=== PATIENT | female | born 1995 | race Caucasian/White ===

== ENCOUNTER → 2019-07-13 14:19 | Outpatient (BNVA) | payer MEDICAID, SELFPAY | PROVIDERS: Family Provider Family Medicine; PCP Family Medicine; Visit Provider Social Worker Clinical | DX: F33.42 Major depressive disorder, recurrent, in full remission (principal) | CPT/HCPCS: 90834 ==

== ENCOUNTER → 2019-08-03 12:58 | Outpatient (BNVA) | payer MEDICAID, SELFPAY | PROVIDERS: Family Provider Family Medicine; PCP Family Medicine; Visit Provider Social Worker Clinical | DX: F33.42 Major depressive disorder, recurrent, in full remission (principal) | CPT/HCPCS: 90834 ==

== ENCOUNTER → 2019-08-10 13:02 | Outpatient (BNVA) | payer MEDICAID, SELFPAY | PROVIDERS: Family Provider Family Medicine; PCP Family Medicine; Visit Provider Social Worker Clinical | DX: F33.2 Major depressive disorder, recurrent severe without psychotic features (principal) | CPT/HCPCS: 90834 ==

== ENCOUNTER → 2019-08-17 15:47 | Outpatient (BNVA) | payer MEDICAID, SELFPAY | PROVIDERS: Family Provider Family Medicine; PCP Family Medicine; Visit Provider Nurse Practitioner Psychiatric/Mental Health | DX: F33.2 Major depressive disorder, recurrent severe without psychotic features (principal); Z91.5 Personal history of self-harm; F10.10 Alcohol abuse, uncomplicated | CPT/HCPCS: 99214 ==

== ENCOUNTER → 2019-08-24 13:02 | Outpatient (BNVA) | payer MEDICAID, SELFPAY | PROVIDERS: Family Provider Family Medicine; PCP Family Medicine; Visit Provider Social Worker Clinical | DX: F33.2 Major depressive disorder, recurrent severe without psychotic features (principal) | CPT/HCPCS: 90834 ==

== ENCOUNTER → 2019-09-07 12:51 | Outpatient (BNVA) | payer MEDICAID, SELFPAY | PROVIDERS: Family Provider Family Medicine; PCP Family Medicine; Visit Provider Social Worker Clinical | DX: F33.2 Major depressive disorder, recurrent severe without psychotic features (principal) | CPT/HCPCS: 90834 ==

== ENCOUNTER → 2019-09-14 14:45 | Outpatient (BNVA) | payer MEDICAID, SELFPAY | PROVIDERS: Family Provider Family Medicine; PCP Family Medicine; Visit Provider Nurse Practitioner Psychiatric/Mental Health | DX: F33.2 Major depressive disorder, recurrent severe without psychotic features (principal); Z91.5 Personal history of self-harm; F10.10 Alcohol abuse, uncomplicated | CPT/HCPCS: 99213 ==

== ENCOUNTER → 2019-09-21 12:28 | Outpatient (BNVA) | payer MEDICAID, SELFPAY | PROVIDERS: Family Provider Family Medicine; PCP Family Medicine; Visit Provider Social Worker Clinical | DX: F33.2 Major depressive disorder, recurrent severe without psychotic features (principal) | CPT/HCPCS: 90834 ==

== ENCOUNTER 2019-10-04 15:00 | Emergency (ER) | payer MEDICAID, SELFPAY ==
[2019-10-04 15:01] VITALS: BP 123/70; PULSE 95; RESP 16; O2SAT 98; BMI 20.2
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
--- NOTE | 2019-10-04 15:40 | PC.NURSE ---
x ray in room
[2019-10-04] MEDS: ondansetron 2 mg/ML SDV 2 mL 4 MG IM (16:14)
[2019-10-04 16:15] VITALS: RESP 18; O2SAT 96
[2019-10-04] MEDS: morphine 4 mg/mL SDV 1 mL IM (16:15)
--- NOTE | 2019-10-04 16:40 | PC.NURSE ---
Pt states slight relief from morphine
[2019-10-04 17:00] VITALS: BP 99/77; PULSE 76; RESP 16; O2SAT 99
== END 2019-10-04 17:02 | disposition home or self-care (01) ==
PROVIDERS: Emergency Provider Physician Assistant; Family Provider Family Medicine; PCP Family Medicine
DX: S16.1XXA Strain of muscle, fascia and tendon at neck level, initial encounter (principal); M25.551 Pain in right hip; V89.2XXA Person injured in unspecified motor-vehicle accident, traffic, initial encounter; Y92.410 Unspecified street and highway as the place of occurrence of the external cause
CPT/HCPCS: 12345; 70450; 70486; 72125; 73502; 96372; 99281; 99283; J2270; J2405

== ENCOUNTER → 2019-10-05 14:53 | Outpatient (BNVA) | payer MEDICAID, SELFPAY | PROVIDERS: Family Provider Family Medicine; PCP Family Medicine; Visit Provider Specialist | DX: R51 Headache (principal); R29.90 Unspecified symptoms and signs involving the nervous system | CPT/HCPCS: 99213 ==

== ENCOUNTER → 2019-10-12 13:13 | Outpatient (BNVA) | payer MEDICAID, SELFPAY | PROVIDERS: Family Provider Family Medicine; PCP Family Medicine; Visit Provider Social Worker Clinical | DX: F33.2 Major depressive disorder, recurrent severe without psychotic features (principal) | CPT/HCPCS: 90834 ==

== ENCOUNTER → 2019-10-20 09:45 | Outpatient (BNVA) | payer MEDICAID, SELFPAY | PROVIDERS: Family Provider Family Medicine; PCP Family Medicine; Visit Provider Social Worker Clinical | DX: F33.2 Major depressive disorder, recurrent severe without psychotic features (principal) | CPT/HCPCS: 90834 ==

== ENCOUNTER → 2019-10-31 08:11 | Outpatient (BNVA) | payer MEDICAID, SELFPAY | PROVIDERS: Family Provider Family Medicine; PCP Family Medicine; Visit Provider Social Worker Clinical | DX: F33.2 Major depressive disorder, recurrent severe without psychotic features (principal); Z91.5 Personal history of self-harm; F10.10 Alcohol abuse, uncomplicated | CPT/HCPCS: 90834 ==

== ENCOUNTER → 2019-11-14 08:10 | Outpatient (BNVA) | payer MEDICAID, SELFPAY | PROVIDERS: Family Provider Family Medicine; PCP Family Medicine; Visit Provider Social Worker Clinical | DX: F33.2 Major depressive disorder, recurrent severe without psychotic features (principal); Z91.5 Personal history of self-harm; F10.10 Alcohol abuse, uncomplicated | CPT/HCPCS: 90834 ==

== ENCOUNTER → 2019-11-22 08:22 | Outpatient (BNVA) | payer MEDICAID, SELFPAY | PROVIDERS: Family Provider Family Medicine; PCP Family Medicine; Visit Provider Social Worker Clinical | DX: F33.2 Major depressive disorder, recurrent severe without psychotic features (principal); Z91.5 Personal history of self-harm; F10.10 Alcohol abuse, uncomplicated | CPT/HCPCS: 90834 ==

== ENCOUNTER → 2019-11-23 08:39 | Outpatient (BNVA) | payer MEDICAID, SELFPAY | PROVIDERS: Family Provider Family Medicine; Visit Provider Nurse Practitioner Psychiatric/Mental Health | DX: F33.2 Major depressive disorder, recurrent severe without psychotic features (principal); F10.10 Alcohol abuse, uncomplicated; Z91.5 Personal history of self-harm; F90.2 Attention-deficit hyperactivity disorder, combined type | CPT/HCPCS: 99214 ==

== ENCOUNTER → 2019-11-30 08:24 | Outpatient (BNVA) | payer MEDICAID, SELFPAY | PROVIDERS: Family Provider Family Medicine; Visit Provider Social Worker Clinical | DX: F33.2 Major depressive disorder, recurrent severe without psychotic features (principal); Z91.5 Personal history of self-harm; F10.10 Alcohol abuse, uncomplicated | CPT/HCPCS: 90834 ==

== ENCOUNTER → 2019-12-07 08:31 | Outpatient (BNVA) | payer MEDICAID, SELFPAY | PROVIDERS: Family Provider Family Medicine; Visit Provider Social Worker Clinical | DX: F33.2 Major depressive disorder, recurrent severe without psychotic features (principal); Z91.5 Personal history of self-harm; F10.10 Alcohol abuse, uncomplicated | CPT/HCPCS: 90834 ==

== ENCOUNTER 2019-12-22 14:47 | Emergency (ER) | payer MEDICAID, SELFPAY ==
--- NOTE | 2019-12-22 15:22 | W.ED.FEVER ---
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, recurrent severe without psychotic features Personal history of self-harm Recurrent UTI Family History Grandfather Hypertension Family/Other CAD (coronary artery disease) Other Cancer Diabetes Denies family history of Stroke Social History Smoking and tobacco status: never smoked Alcohol intake: current Alcohol intake frequency: few times a month Marital status: Single Current occupational status: unemployed History of recent travel: No Physical Exam Const: COMMON NORMALS: no acute distress and patient oriented x3 GENERAL APPEARANCE: cooperative HENMT: COMMON NORMALS: normocephalic, TM's normal bilaterally and Normal external nose present HEAD & SCALP: normal to inspection and normocephalic NOSE: Normal external nose present TYMPANIC MEMBRANE: TM's normal bilaterally MOUTH: Normal oral and palatal mucosa present THROAT: posterior oropharynx normal Eye: GENERAL EYE: appearance normal, both eyes and all related structures Neck/C-Spine: COMMON NORMALS: full ROM Lymph: LYMPHATIC: no lymphadenopathy noted Chest: COMMONS NORMALS: normal inspection of the chest Resp: COMMON NORMALS: normal respiratory effort EFFORT & INSPECTION: Yes able to speak in complete sentences Cardio: COMMON NORMALS: regular rate and regular rhythm RATE: regular rate RHYTHM: regular rhythm GI: COMMON NORMALS: non-tender : COMMON NORMALS: Yes no CVA tenderness BLADDER/KIDNEY EXAM: Yes no CVA tenderness Back/Pelvis: COMMON NORMALS: no CVA tenderness and thoracic and lumbar spine normal to inspection Extremity: COMMON NORMALS: normal to inspection Neuro: COMMON NORMALS: patient oriented x3 and moves all extremities Psych: COMMON NORMALS: mental status grossly normal and cooperative Skin: COMMON NORMALS: no rashes or lesions noted GENERAL SKIN EXAM: no rashes or lesions noted Discharge Plan Discharge Prescriptions: No Action sulfamethoxazole-trimethoprim 800-160 mg tablet 1 tab PO BID Qty: 20 RF: 1 amitriptyline 25 mg tablet 25 mg PO DAILY PRN (Reason: Headaches) Qty: 30 RF: 1 duloxetine [Cymbalta] 60 mg capsule,delayed release(DR/EC) 60 mg PO QAM Qty: 30 RF: 3 trazodone 100 mg tablet 200 mg PO BEDTIME PRN (Reason: sleep) Qty: 60 RF: 3 gabapentin 300 mg capsule 300 mg PO .bedtime Qty: 30 RF: 1 desogestrel-ethinyl estradiol [Enskyce] 0.15-0.03 mg tablet 1 tab PO DAILY RF: 0 Multiple Vitamins Tablet 2 tab PO DAILY RF: 0 Prilosec OTC 20 mg Tablet,Delayed Release (Dr/Ec) 20 mg PO DAILY PRN (Reason: UNKNOWN) RF: 0 cyclobenzaprine 10 mg tablet 10 mg PO TID Qty: 14 RF: 0 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
[2019-12-22 15:59] VITALS: BP 107/63; PULSE 73; RESP 16; TEMP 36.6; O2SAT 97
--- NOTE | 2019-12-22 16:01 | ED_ITS ---
HPI - Fever General: Chief Complaint: General Medical Stated Complaint: fever Time Seen by Provider: 12/22/19 15:22 Source: patient Mode of arrival: ambulatory Limitations: no limitations History of Present Illness: HPI Narrative: Patient came in for concerns of exposure to viral illness. Her son has been ill with cough and fever. Patient does not want testing unless it is necessary. Patient appears well. Patient appears in no acute distress. 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, recurrent severe without psychotic features Personal history of self-harm Recurrent UTI Family History Grandfather Hypertension Family/Other CAD (coronary artery disease) Other Cancer Diabetes Denies family history of Stroke Social History Smoking and tobacco status: never smoked Alcohol intake: current Alcohol intake frequency: few times a month Marital status: Single Current occupational status: unemployed History of recent travel: No Physical Exam Const: COMMON NORMALS: no acute distress and patient oriented x3 GENERAL APPEARANCE: cooperative HENMT: COMMON NORMALS: normocephalic, TM's normal bilaterally and Normal external nose present HEAD & SCALP: normal to inspection and normocephalic NOSE: Normal external nose present TYMPANIC MEMBRANE: TM's normal bilaterally MOUTH: Normal oral and palatal mucosa present THROAT: posterior oropharynx normal Eye: GENERAL EYE: appearance normal, both eyes and all related structures Neck/C-Spine: COMMON NORMALS: full ROM Lymph: LYMPHATIC: no lymphadenopathy noted Chest: COMMONS NORMALS: normal inspection of the chest Resp: COMMON NORMALS: normal respiratory effort EFFORT & INSPECTION: Yes able to speak in complete sentences Cardio: COMMON NORMALS: regular rate and regular rhythm RATE: regular rate RHYTHM: regular rhythm GI: COMMON NORMALS: non-tender : COMMON NORMALS: Yes no CVA tenderness BLADDER/KIDNEY EXAM: Yes no CVA tenderness Back/Pelvis: COMMON NORMALS: no CVA tenderness and thoracic and lumbar spine normal to inspection Extremity: COMMON NORMALS: normal to inspection Neuro: COMMON NORMALS: patient oriented x3 and moves all extremities Psych: COMMON NORMALS: mental status grossly normal and cooperative Skin: COMMON NORMALS: no rashes or lesions noted GENERAL SKIN EXAM: no april hes or lesions noted Course Vital Signs: Vital signs: Vital Signs Temperature 97.9 F 12/22/19 15:59 Pulse Rate 73 12/22/19 15:59 Respiratory Rate 16 12/22/19 15:59 Blood Pressure 107/63 12/22/19 15:59 Pulse Oximetry 97 12/22/19 16:13 MDM - Fever MDM Narrative: Medical decision making narrative: Patient here today for complaints of possible exposure to viral illness. Patient denies any signs or symptoms of infection. Patient's son was also in the ER for upper respiratory illness. Exam notes lungs are clear to auscultation. Ear nose and throat is normal. Vital signs are normal. Differential diagnosis includes prodrome of viral illness, upper respiratory infection, malingering. Reviewed exam with patient with recommendations for treatment follow-up. Patient reported understanding agreed to plan. Discharge Plan Discharge Patient Disposition: Home, Self-Care Clinical Impression: Exposure to viral disease Condition: Stable Prescriptions: No Action sulfamethoxazole-trimethoprim 800-160 mg tablet 1 tab PO BID Qty: 20 RF: 1 amitriptyline 25 mg tablet 25 mg PO DAILY PRN (Reason: Headaches) Qty: 30 RF: 1 duloxetine [Cymbalta] 60 mg capsule,delayed release(DR/EC) 60 mg PO QAM Qty: 30 RF: 3 trazodone 100 mg tablet 200 mg PO BEDTIME PRN (Reason: sleep) Qty: 60 RF: 3 gabapentin 300 mg capsule 300 mg PO .bedtime Qty: 30 RF: 1 desogestrel-ethinyl estradiol [Enskyce] 0.15-0.03 mg tablet 1 tab PO DAILY RF: 0 Multiple Vitamins Tablet 2 tab PO DAILY RF: 0 Prilosec OTC 20 mg Tablet,Delayed Release (Dr/Ec) 20 mg PO DAILY PRN (Reason: UNKNOWN) RF: 0 cyclobenzaprine 10 mg tablet 10 mg PO TID Qty: 14 RF: 0 Discharge Orders: Discharge Order (Routine); Ordered 12/22/19 Ordered By: Homer Pena Referrals: Jemma Malone MD [Primary Care Provider] - Discharge Diet: Usual diet Discharge Activity: Increase activity as tolerated Activity Restrictions/Additional Instructions: Home and rest. Drink plenty of fluids. Tylenol or ibuprofen as needed for pain or fever. Follow-up with primary care as needed. Return to the ER for new concerns. 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
[2019-12-22 16:13] VITALS: O2SAT 97
== END 2019-12-22 16:48 | disposition home or self-care (01) ==
PROVIDERS: Emergency Provider Nurse Practitioner Family; PCP Family Medicine
DX: Z20.828 Contact with and (suspected) exposure to other viral communicable diseases (principal)
CPT/HCPCS: 12345; 99281

== ENCOUNTER → 2019-12-28 07:38 | Outpatient (BNVA) | payer MEDICAID, SELFPAY | PROVIDERS: PCP Family Medicine; Visit Provider Nurse Practitioner Psychiatric/Mental Health | DX: F33.2 Major depressive disorder, recurrent severe without psychotic features (principal); F10.10 Alcohol abuse, uncomplicated; Z91.5 Personal history of self-harm | CPT/HCPCS: 99214 ==

== ENCOUNTER → 2020-01-04 08:15 | Outpatient (BNVA) | payer MEDICAID, SELFPAY | PROVIDERS: PCP Family Medicine; Visit Provider Social Worker Clinical | DX: F33.2 Major depressive disorder, recurrent severe without psychotic features (principal); F10.10 Alcohol abuse, uncomplicated; Z91.5 Personal history of self-harm | CPT/HCPCS: 90834; 87635 ==

== ENCOUNTER → 2020-03-07 08:29 | Outpatient (BNVA) | payer MEDICAID, SELFPAY | PROVIDERS: PCP Family Medicine; Visit Provider Nurse Practitioner Psychiatric/Mental Health | DX: F33.2 Major depressive disorder, recurrent severe without psychotic features (principal); F10.10 Alcohol abuse, uncomplicated; Z91.5 Personal history of self-harm | CPT/HCPCS: 99214 ==

== ENCOUNTER 2020-04-03 15:12 | Outpatient (CLI) | payer MEDICAID, SELFPAY ==
--- NOTE | 2020-04-03 15:16 | USCV_ITS ---
Kassandra Cerrato Age: 24 Gender: F : 1995 Exam Date: 04/03/2020 15:46 Ordering Phys: Kole Lopez M.D ([email or web address]) Technologist: Kaushik Saucedo Exam Location: [facility] Indication: HISTORY OF COARCTATION OF AORTA BP: 120 / 80 HR: 73 Rhythm: Sinus Technical Quality: Adequate MEASUREMENTS (Male / Female) Normal Values 2D ECHO LV Diastolic Diameter PLAX 4.0 cm 4.2 - 5.9 / 3.9 - 5.3 cm LV Systolic Diameter PLAX 2.4 cm IVS Diastolic Thickness 0.9 cm 0.6 - 1.0 / 0.6 - 0.9 cm IVS Systolic Thickness 1.3 cm LVPW Diastolic Thickness 0.8 cm 0.6 - 1.0 / 0.6 - 0.9 cm LVPW Systolic Thickness 1.3 cm LVOT Diameter 1.6 cm LV Ejection Fraction 2D Teich 71.9 % LV Ejection Fraction MOD 2C 69.0 % LV Ejection Fraction 2C AL 68.6 % LA Diameter 3.4 cm LA Width 2.8 cm LA Height 3.7 cm RA Width 2.9 cm RA Height 3.5 cm Aorta at Sinotubular Diameter 0.9 cm M-MODE LV Diastolic Diameter MM 4.4 cm 4.2 - 5.9 / 3.9 - 5.3 cm LV Systolic Diameter MM 2.7 cm LV Ejection Fraction MM Teich 70.5 % IVS Diastolic Thickness MM 0.8 cm 0.6 - 1.0 / 0.6 - 0.9 cm IVS Systolic Thickness MM 1.3 cm LVPW Diastolic Thickness MM 0.8 cm 0.6 - 1.0 / 0.6 - 0.9 cm LVPW Systolic Thickness MM 1.6 cm RV Diastolic Diameter MM 1.5 cm Aortic Annulus Diameter 2.7 cm LA Ao Ratio MM 1.3 MV E Point Septal Separation 0.9 cm DOPPLER AV Peak Velocity 117.0 cm/s LVOT Peak Velocity 95.0 cm/s AV Area Cont Eq vti 1.4 cm squared AV Area Cont Eq pk 1.6 cm squared MV Area PHT 3.5 cm squared Mitral E to A Ratio 2.2 MV E' Velocity 19.0 cm/s Mitral E to MV E' Ratio 6.3 Mitral E to LV E' Lateral Ratio 5.5 Mitral E to LV E' Septal Ratio 7.3 TR Peak Velocity 207.0 cm/s TR Peak Gradient 17.2 mmHg TV Peak E Velocity 106.0 cm/s Right Atrial Pressure 3.0 mmHg Pulmonary Artery Systolic Pressu 20.1 mmHg FINDINGS Left Ventricle Normal left ventricular size, systolic function and wall thickness, with no regional wall motion abnormalities. LVEF is 65 to 70%. Normal left ventricular wall thickness. Normal diastolic filling pattern. Right Ventricle The right ventricle is normal in size and function. Right Atrium The right atrium is normal in size. Left Atrium The left atrium is normal in size. Mitral Valve Structurally normal mitral valve without significant stenosis or prolapse. There is no mitral regurgitation. Aortic Valve Structurally normal aortic valve without significant sclerosis or stenosis. There is no aortic regurgitation. Tricuspid Valve Structurally normal tricuspid valve without significant stenosis or regurgitation. Trace tricuspid regurgitation is noted. Pulmonic Valve Structurally normal pulmonic valve without significant stenosis. There is no pulmonic regurgitation. Pericardium Normal pericardium without effusion. Aorta Normal ascending aorta dimension. The aortic flow velocity at the junction of arch and descending aorta was 128.5 cm/s with a peak gradient of 6.6 mmHg. CONCLUSIONS LV systolic function is normal with EF of 65 to 70%. Diastolic function is normal. No significant stenosis at the junction of the arch and descending aorta based on aortic Doppler flow velocity. Compared to prior echo from 04/16/2016, no significant changes are noted. Kole Lopez MD (Electronically Signed) Final Date: 14 April 2020 20:57 S
== END 2020-04-03 15:13 | disposition home or self-care (01) ==
LOC: US 15:13
PROVIDERS: PCP Family Medicine; Visit Provider Internal Medicine
DX: Q25.1 Coarctation of aorta (principal)
CPT/HCPCS: 93306

== ENCOUNTER → 2020-04-04 08:41 | Outpatient (BNVA) | payer MEDICAID, SELFPAY | PROVIDERS: PCP Family Medicine; Visit Provider Nurse Practitioner Psychiatric/Mental Health | DX: F33.2 Major depressive disorder, recurrent severe without psychotic features (principal); F10.10 Alcohol abuse, uncomplicated; Z91.5 Personal history of self-harm | CPT/HCPCS: 99214 ==

== ENCOUNTER → 2020-04-30 08:28 | Outpatient (BNVA) | payer MEDICAID, SELFPAY | PROVIDERS: PCP Family Medicine; Visit Provider Social Worker Clinical | DX: F33.3 Major depressive disorder, recurrent, severe with psychotic symptoms (principal) | CPT/HCPCS: 90791 ==

== ENCOUNTER → 2020-05-02 08:41 | Outpatient (BNVA) | payer MEDICAID, SELFPAY | PROVIDERS: PCP Family Medicine; Visit Provider Nurse Practitioner Psychiatric/Mental Health | DX: F33.2 Major depressive disorder, recurrent severe without psychotic features (principal); F10.10 Alcohol abuse, uncomplicated; Z91.5 Personal history of self-harm | CPT/HCPCS: 99214 ==

== ENCOUNTER → 2020-05-14 08:59 | Outpatient (BNVA) | payer MEDICAID, SELFPAY | PROVIDERS: PCP Family Medicine; Visit Provider Social Worker Clinical | DX: F33.2 Major depressive disorder, recurrent severe without psychotic features (principal) | CPT/HCPCS: 90834 ==

== ENCOUNTER → 2020-07-09 08:19 | Outpatient (BNVA) | payer MEDICAID, SELFPAY | PROVIDERS: PCP Family Medicine; Visit Provider Social Worker Clinical | DX: F33.2 Major depressive disorder, recurrent severe without psychotic features (principal); F10.10 Alcohol abuse, uncomplicated | CPT/HCPCS: 90834 ==

== ENCOUNTER → 2020-07-16 08:53 | Outpatient (BNVA) | payer BC, SELFPAY | PROVIDERS: PCP Family Medicine; Visit Provider Social Worker Clinical | DX: F33.2 Major depressive disorder, recurrent severe without psychotic features (principal) | CPT/HCPCS: 90834 ==

== ENCOUNTER → 2020-08-06 09:32 | Outpatient (BNVA) | payer BC, SELFPAY | PROVIDERS: PCP Family Medicine; Visit Provider Nurse Practitioner Psychiatric/Mental Health | DX: F33.2 Major depressive disorder, recurrent severe without psychotic features (principal); Z91.5 Personal history of self-harm; F10.10 Alcohol abuse, uncomplicated; F41.1 Generalized anxiety disorder | CPT/HCPCS: 99214 ==

== ENCOUNTER → 2020-09-12 08:07 | Outpatient (BNVA) | payer BC, SELFPAY | PROVIDERS: PCP Family Medicine; Visit Provider Social Worker Clinical | DX: F33.2 Major depressive disorder, recurrent severe without psychotic features (principal) | CPT/HCPCS: 90834 ==

== ENCOUNTER → 2020-10-03 14:41 | Outpatient (BNVA) | payer BC, SELFPAY | PROVIDERS: PCP Family Medicine; Visit Provider Social Worker Clinical | DX: F33.2 Major depressive disorder, recurrent severe without psychotic features (principal) | CPT/HCPCS: 90834 ==

== ENCOUNTER → 2020-10-30 07:55 | Outpatient (BNVA) | payer BC, SELFPAY | PROVIDERS: PCP Family Medicine; Visit Provider Nurse Practitioner Psychiatric/Mental Health | DX: F33.2 Major depressive disorder, recurrent severe without psychotic features (principal); Z91.5 Personal history of self-harm; F10.10 Alcohol abuse, uncomplicated | CPT/HCPCS: 99214 ==

== ENCOUNTER → 2020-11-13 15:21 | Outpatient (BNVA) | payer BC, SELFPAY | PROVIDERS: PCP Family Medicine; Visit Provider Social Worker Clinical | DX: F33.2 Major depressive disorder, recurrent severe without psychotic features (principal); F10.10 Alcohol abuse, uncomplicated | CPT/HCPCS: 90834 ==

== ENCOUNTER → 2020-11-23 15:58 | Outpatient (BNVA) | payer BC, SELFPAY | PROVIDERS: PCP Family Medicine; Visit Provider Nurse Practitioner Family | DX: J02.9 Acute pharyngitis, unspecified (principal) | CPT/HCPCS: 87071; 87880 ==

== ENCOUNTER → 2020-12-18 15:39 | Outpatient (BNVA) | payer BC, SELFPAY | PROVIDERS: PCP Family Medicine; Visit Provider Social Worker Clinical | DX: F33.2 Major depressive disorder, recurrent severe without psychotic features (principal); F10.10 Alcohol abuse, uncomplicated | CPT/HCPCS: 90834 ==

== ENCOUNTER → 2020-12-19 08:29 | Outpatient (BNVA) | payer BC, SELFPAY | PROVIDERS: PCP Family Medicine; Visit Provider Nurse Practitioner Psychiatric/Mental Health | DX: F33.2 Major depressive disorder, recurrent severe without psychotic features (principal); Z91.5 Personal history of self-harm; F10.10 Alcohol abuse, uncomplicated | CPT/HCPCS: 99214 ==

== ENCOUNTER → 2021-01-01 15:20 | Outpatient (BNVA) | payer BC, SELFPAY | PROVIDERS: PCP Family Medicine; Visit Provider Social Worker Clinical | DX: F33.2 Major depressive disorder, recurrent severe without psychotic features (principal); F10.10 Alcohol abuse, uncomplicated | CPT/HCPCS: 90834 ==

== ENCOUNTER → 2021-01-22 15:27 | Outpatient (BNVA) | payer BC, SELFPAY | PROVIDERS: PCP Family Medicine; Visit Provider Social Worker Clinical | DX: F33.2 Major depressive disorder, recurrent severe without psychotic features (principal) | CPT/HCPCS: 90834 ==

== ENCOUNTER → 2021-02-04 12:37 | Outpatient (BNVA) | payer BC, SELFPAY | PROVIDERS: PCP Family Medicine; Visit Provider Registered Nurse Neonatal Intensive Care | DX: Z20.822 Contact with and (suspected) exposure to COVID-19 (principal) | CPT/HCPCS: 87635 ==

== ENCOUNTER → 2021-02-19 15:48 | Outpatient (BNVA) | payer BC, SELFPAY | PROVIDERS: PCP Family Medicine; Visit Provider Social Worker Clinical | DX: F33.2 Major depressive disorder, recurrent severe without psychotic features (principal) | CPT/HCPCS: 90834 ==

== ENCOUNTER → 2021-02-28 08:04 | Outpatient (BNVA) | payer BC, SELFPAY | PROVIDERS: PCP Family Medicine; Visit Provider Nurse Practitioner Psychiatric/Mental Health | DX: F33.2 Major depressive disorder, recurrent severe without psychotic features (principal); Z91.5 Personal history of self-harm; F10.10 Alcohol abuse, uncomplicated; G47.00 Insomnia, unspecified | CPT/HCPCS: 99214 ==

== ENCOUNTER → 2021-04-02 15:43 | Outpatient (BNVA) | payer BC, SELFPAY | PROVIDERS: PCP Family Medicine; Visit Provider Social Worker Clinical | DX: F33.2 Major depressive disorder, recurrent severe without psychotic features (principal); F10.10 Alcohol abuse, uncomplicated | CPT/HCPCS: 90834 ==

== ENCOUNTER → 2021-04-10 09:04 | Outpatient (BNVA) | payer BC, SELFPAY | PROVIDERS: PCP Family Medicine; Visit Provider Nurse Practitioner Psychiatric/Mental Health | DX: F33.2 Major depressive disorder, recurrent severe without psychotic features (principal); Z91.5 Personal history of self-harm; F10.10 Alcohol abuse, uncomplicated; G47.00 Insomnia, unspecified | CPT/HCPCS: 99214 ==

== ENCOUNTER → 2021-04-28 15:00 | Outpatient (BNVA) | payer BC, SELFPAY | PROVIDERS: PCP Family Medicine; Visit Provider Social Worker Clinical | DX: F33.2 Major depressive disorder, recurrent severe without psychotic features (principal); F10.10 Alcohol abuse, uncomplicated | CPT/HCPCS: 90834 ==

== ENCOUNTER → 2021-05-07 08:27 | Outpatient (BNVA) | payer BC, SELFPAY | PROVIDERS: PCP Family Medicine; Visit Provider Social Worker Clinical | DX: F33.2 Major depressive disorder, recurrent severe without psychotic features (principal); F10.10 Alcohol abuse, uncomplicated | CPT/HCPCS: 90834 ==

== ENCOUNTER → 2021-05-22 08:08 | Outpatient (BNVA) | payer BC, SELFPAY | PROVIDERS: PCP Family Medicine; Visit Provider Nurse Practitioner Psychiatric/Mental Health | DX: F33.2 Major depressive disorder, recurrent severe without psychotic features (principal); F10.10 Alcohol abuse, uncomplicated; G47.00 Insomnia, unspecified | CPT/HCPCS: 99214 ==

== ENCOUNTER → 2021-05-28 15:56 | Outpatient (BNVA) | payer BC, SELFPAY | PROVIDERS: PCP Family Medicine; Visit Provider Social Worker Clinical | DX: F33.2 Major depressive disorder, recurrent severe without psychotic features (principal); F10.10 Alcohol abuse, uncomplicated | CPT/HCPCS: 90834 ==

== ENCOUNTER → 2021-06-11 15:54 | Outpatient (BNVA) | payer BC, SELFPAY | PROVIDERS: PCP Family Medicine; Visit Provider Social Worker Clinical | DX: F33.2 Major depressive disorder, recurrent severe without psychotic features (principal); F10.10 Alcohol abuse, uncomplicated | CPT/HCPCS: 90834 ==

== ENCOUNTER → 2021-06-25 15:57 | Outpatient (BNVA) | payer BC, SELFPAY | PROVIDERS: PCP Family Medicine; Visit Provider Social Worker Clinical | DX: F33.1 Major depressive disorder, recurrent, moderate (principal) | CPT/HCPCS: 90791 ==

== ENCOUNTER → 2021-07-10 13:35 | Outpatient (BNVA) | payer BC, SELFPAY | PROVIDERS: PCP Family Medicine; Visit Provider Nurse Practitioner | DX: R39.9 Unspecified symptoms and signs involving the genitourinary system (principal) | CPT/HCPCS: 81000 ==

== ENCOUNTER 2021-07-12 16:07 | Emergency (ER) | payer BC, MEDICAID, SELFPAY ==
[2021-07-12 16:21] VITALS: BP 113/72; PULSE 89; RESP 16; TEMP 37.2; O2SAT 97
--- NOTE | 2021-07-12 20:56 | ED_ITS ---
HPI - Female Genitourinary General: Chief complaint: Urogenital-Female Stated complaint: VAGINAL PROBLEMS Time Seen by Provider: 07/12/21 20:51 History of Present Illness: HPI Narrative: Patient is a 25-year-old female comes to the ED with vaginal pain. Symptoms started approximately 1 week ago. She was given a dose of fluconazole and treated for a yeast infection on Wednesday. She says symptoms were improving. She also wanted to see PCP on and they diagnosed her with a UTI and put her on clindamycin. She has been taking the clindamycin now for little over 24 hours. She says she still having some vaginal pain. A little bit of white vaginal discharge. Denies any vaginal bleeding. Denies any abdominal pain, lower back pain, nausea/vomiting, fever or chills. Associated symptoms: Reports vaginal discharge (white discharge); Deny abdominal pain, headache(s), nausea or vaginal bleeding Review of Systems Const: Denies: fever(s), chills or fatigue Eyes: Denies: change in vision or eye discomfort ENMT: Denies: throat pain, odynophagia, nasal discharge or nasal congestion Card: Denies: chest pain, palpitations, edema, swelling of feet/ankles, dyspnea on exertion or orthopnea Resp: Denies: dyspnea, productive cough or non-productive cough GI: Denies: abdominal pain, nausea, vomiting, diarrhea, constipation or hematochezia : Reports: dysuria, vaginal discharge (white discharge) and other (skin around vagina burning pain); Denies: flank pain, hematuria or vaginal bleeding Musc: Denies: neck pain, back pain or extremity swelling Skin/Breast: Denies: rash or new lesions Neuro: Denies: headache(s), numbness in extremities or weakness in extremities COUNTS INCLUDE 234 BEDS AT THE [facility] ED PFSH: Medical History Coarctation of aorta Hutch diverticulum of urinary bladder Insomnia Major depressive disorder, recurrent severe without psychotic features Personal history of self-harm Psychiatric care Recurrent UTI Family History Grandfather Hypertension Family/Other CAD (coronary artery disease) Other Cancer Diabetes Denies family history of Stroke Social History Smoking and tobacco status: never smoked Alcohol intake: current Alcohol intake frequency: few times a month Marital status: Single Current occupational status: unemployed History of recent travel: No Current gender identity: Female Physical Exam Const: COMMON NORMALS: no acute distress, patient oriented x3 and alert GENERAL APPEARANCE: cooperative and comfortable HENMT: COMMON NORMALS: normocephalic HEAD & SCALP: normocephalic MOUTH: Normal oral and palatal mucosa present THROAT: posterior oropharynx normal and uvula midline Neck/C-Spine: COMMON NORMALS: supple GENERAL: Yes normal visual inspection Resp: COMMON NORMALS: normal respiratory effort, No retractions, No use of accessory muscles and clear to auscultation bilaterally AUSCULTATION: clear to auscultation bilaterally Cardio: COMMON NORMALS: regular rate, regular rhythm, S1 normal heart sound present, S2 normal heart sound present, No gallops present (Cardio), No clicks present (Cardio), No murmurs present (Cardio) and Peripheral pulses 2+ throughout RATE: regular rate RHYTHM: regular rhythm HEART SOUNDS: S1 normal heart sound present and S2 normal heart sound present PERIPHERAL PULSES: Peripheral pulses 2+ throughout GI: COMMON NORMALS: Normal to inspection, nondistended, normoactive bowel sounds present, Soft to palpation, non-tender and no masses PALPATION: Yes Soft to palpation : COMMON NORMALS: Yes no CVA tenderness BLADDER/KIDNEY EXAM: Yes no CVA tenderness EXTERNAL FEMALE EXAM: Yes normal appearance of the urethra, No erythema, No external swelling and No urethral discharge SPECULUM EXAM - VAGINA: No erythematous, No lesion, No vaginal bleeding and Yes Vaginal discharge present Vaginal discharge present: white OB/EXTERNAL & SPECULUM: No vaginal bleeding OTHER: Vaginal exam performed with female nurse at bedside. Back/Pelvis: COMMON NORMALS: no CVA tenderness Extremity: COMMON NORMALS: normal to inspection Neuro: COMMON NORMALS: patient oriented x3 and moves all extremities SENSORIUM/ORIENTATION: Yes alert Skin: GENERAL SKIN EXAM: dry skin Course Vital Signs: Vital signs: Vital Signs Temperature 99.0 F 07/12/21 16:21 Pulse Rate 89 07/12/21 16:21 Respiratory Rate 16 07/12/21 23:24 Blood Pressure 93/72 07/12/21 21:14 Pulse Oximetry 97 07/12/21 16:21 MDM - Female MDM Narrative: Medical decision making narrative: Patient is a 25-year-old female comes to the ED with vaginal irritation/burning, white discharge and some dysuria. She was given a dose of fluconazole about a week ago and it did help her symptoms mostly but did not completely resolve them. She says her symptoms have improved for the most part but she still has some vaginal burning and dysuria along with some white discharge. Patient appears in no acute distress or pain. Genital exam performed with female nurse present. No visible sores, erythema or vaginal bleeding seen. Patient does have a little bit of white vaginal discharge. No other acute exam findings. Vitals stable. UA shows some white blood cells, red blood cells and bacteria. UA hCG negative. Wet prep was unremarkable. Gonorrhea and Chlamydia labs pending but patient was given prophylactic treatment for gonorrhea and chlamydia with 500 mg of Rocephin IM and 1000 g of azithromycin. Patient treated for vaginitis likely due to yeast infection. Patient was given a dose of fluconazole while here in the ED. She was discharged home with a prescription for a steroid cream to use if symptoms do not resolve in the next 2 to 3 days. She was also told to continue taking her previously prescribed antibiotic to treat her UTI. Return to ED precautions given. Follow-up with PCP in 5 to 7 days reevaluation. Patient understood and agreed with plan. Lab Data: Attestation: I reviewed the patient's lab results. Labs: Lab Results 07/12/21 07/12/21 21:31 21:31 HCG, Qual Negative (Negative) Urine Color Yellow (Yellow) Urine Appearance Sl hazy (CLEAR) Urine pH 5 (5-7) Ur Specific [place] y 1.025 (1.005-1.030) Urine Protein Trace (Negative) Urine Glucose (UA) Norm (Normal) Urine Ketones Negative (Negative) Urine Blood Neg (Negative) Urine Nitrate Negative (Negative) Urine Bilirubin 1+ H (Negative) Urine Urobilinogen 1 mg/dL H mg/dL (Negative) Ur Leukocyte Linda ase Negative (Negative) Urine RBC 10-15 /hpf H /hpf (0-2) Urine WBC 5-10 /hpf H /hpf (0-5) Ur Squamous Epith Cells 10-15 /hpf H /hpf (0-5) Amorphous Sediment Not Reportable Urine Bacteria 2+ /hpf H /hpf (NONE) Urine Mucus 1+ /hpf /hpf Discharge Plan Discharge Patient Disposition: Home Clinical Impression: Vaginitis Qualifiers: Chronicity: acute Qualified Code(s): N76.0 - Acute vaginitis UTI (urinary tract infection) Qualifiers: Urinary tract infection type: acute cystitis Hematuria presence: with hematuria Qualified Code(s): N30.01 - Acute cystitis with hematuria Condition: Stable Prescriptions: New hydrocortisone 1 % ointment 1 applic topical DAILY PRN (Reason: skin irritation) Qty: 28.35 RF: 0 No Action clindamycin HCl 300 mg capsule 300 mg PO BID 7 Days Qty: 14 RF: 0 desogestrel-ethinyl estradiol [Enskyce] 0.15-0.03 mg tablet 1 tab PO DAILY RF: 0 duloxetine [Cymbalta] 30 mg capsule,delayed release(DR/EC) 30 mg PO .morning Qty: 30 RF: 3 Multiple Vitamins Tablet 2 tab PO DAILY RF: 0 Prilosec OTC 20 mg Tablet,Delayed Release (Dr/Ec) 20 mg PO DAILY PRN (Reason: UNKNOWN) RF: 0 Discharge Orders: Discharge ED (Routine); Ordered 07/12/21 Ordered By: Antonio Peña Referrals: Jemma Malone MD [Primary Care Provider] - Discharge Diet: Regular Discharge Activity: Increase activity as tolerated Patient Instructions: Yeast Infection (ED) Activity Restrictions/Additional Instructions: Follow-up with medical provider as directed in 5 to 7 days reevaluation. Wait a couple days after getting the fluconazole dose here in the ED to see if symptoms are improving. If not improving after 2 to 3 days she can start applying the topical steroid cream as well to see if it improves symptoms. Continue taking your previously prescribed antibiotic. Take medications as prescribed. Your gonorrhea and Chlamydia test is pending and they will call you with results. If you are positive remember that you receive the full treatment here in the ED tonight. Return to the ER or your medical provider if condition worsens. Please read and understand discharge instructions. Thank you for choosing [facility] for your healthcare needs today. Please realize this is an emergency room and that we are providing you with a medical screening exam and this may not be complete and all inclusive of all the testing and or work up that you may need to determine your ailment or severity of your illness. It is very important that you follow up as instructed or that you return to the Emergency Department should you have concerns or if your condition changes or worsens in any way. Coding Level of Care Code ED Meatman for Chg Fwd Exam Comprehensive
[2021-07-12 21:14] VITALS: BP 93/72
[2021-07-12 21:43] LABS: Add Urine Microscopic? YES; Bilirubin Urine 1+ (Negative); Blood Urine Neg (Negative); Glucose Urine UA Norm (Normal); Ketones Urine Negative (Negative); Leukocyte Esterase Urine Negative (Negative); Nitrate Urine Negative (Negative); Protein Urine Trace (Negative); Specific Gravity, Urine 1.025 (1.005-1.030); Urine Appearance SL Hazy (CLEAR); Urine Color Yellow (Yellow); Urobilinogen Urine 1 mg/dL (Negative); pH Urine 5 (5-7)
[2021-07-12 21:44] LABS: Add Urine Culture? No; Bacteria Urine 2+ /hpf; HCG Qualitative Urine. Negative (Negative); Mucus Urine 1+ /hpf
[2021-07-12] MEDS: azithromycin 250 mg Tablet 1000 MG PO (22:18)
[2021-07-12] MEDS: HYDROcodone-acetaminophen 5-325 mg Tablet 1 TAB PO (22:18)
[2021-07-12 23:24] VITALS: RESP 16
[2021-07-12] MEDS: fluconazole 100 mg Tablet 150 MG PO (23:24)
== END 2021-07-12 23:29 | disposition home or self-care (01) ==
PROVIDERS: Emergency Medicine; Emergency Provider Physician Assistant; PCP Family Medicine
DX: N76.0 Acute vaginitis (principal); N30.01 Acute cystitis with hematuria
CPT/HCPCS: 81001; 81025; 87210; 87491; 87591; 96372; 99284; J0696; Q0144

== ENCOUNTER → 2021-07-23 15:58 | Outpatient (BNVA) | payer BC, MEDICAID, SELFPAY | PROVIDERS: PCP Family Medicine; Visit Provider Social Worker Clinical | DX: F33.2 Major depressive disorder, recurrent severe without psychotic features (principal); F10.10 Alcohol abuse, uncomplicated | CPT/HCPCS: 90834 ==

== ENCOUNTER → 2021-08-06 16:01 | Outpatient (BNVA) | payer BC, SELFPAY | PROVIDERS: PCP Family Medicine; Visit Provider Social Worker Clinical | DX: F33.2 Major depressive disorder, recurrent severe without psychotic features (principal); F10.10 Alcohol abuse, uncomplicated | CPT/HCPCS: 90834 ==

== ENCOUNTER → 2021-08-20 15:59 | Outpatient (BNVA) | payer BC, SELFPAY | PROVIDERS: PCP Family Medicine; Visit Provider Social Worker Clinical | DX: F33.2 Major depressive disorder, recurrent severe without psychotic features (principal); F10.10 Alcohol abuse, uncomplicated | CPT/HCPCS: 90834 ==

== ENCOUNTER → 2021-09-10 15:59 | Outpatient (BNVA) | payer BC, SELFPAY | PROVIDERS: PCP Family Medicine; Visit Provider Social Worker Clinical | DX: F33.2 Major depressive disorder, recurrent severe without psychotic features (principal); F10.10 Alcohol abuse, uncomplicated | CPT/HCPCS: 90834 ==

== ENCOUNTER → 2021-09-24 15:51 | Outpatient (BNVA) | payer BC, MEDICAID, SELFPAY | PROVIDERS: PCP Family Medicine; Visit Provider Social Worker Clinical | DX: F33.2 Major depressive disorder, recurrent severe without psychotic features (principal); F10.10 Alcohol abuse, uncomplicated | CPT/HCPCS: 90834 ==

== ENCOUNTER → 2021-09-25 13:41 | Outpatient (BNVA) | payer BC, MEDICAID, SELFPAY | PROVIDERS: PCP Family Medicine; Visit Provider Internal Medicine | DX: Q25.1 Coarctation of aorta (principal) | CPT/HCPCS: 99213 ==

== ENCOUNTER → 2021-10-08 15:59 | Outpatient (BNVA) | payer BC, MEDICAID, SELFPAY | PROVIDERS: PCP Family Medicine; Visit Provider Social Worker Clinical | DX: F33.2 Major depressive disorder, recurrent severe without psychotic features (principal); F10.10 Alcohol abuse, uncomplicated | CPT/HCPCS: 90834 ==

== ENCOUNTER → 2021-10-15 15:59 | Outpatient (BNVA) | payer BC, MEDICAID, SELFPAY | PROVIDERS: PCP Family Medicine; Visit Provider Social Worker Clinical | DX: F33.2 Major depressive disorder, recurrent severe without psychotic features (principal); F10.10 Alcohol abuse, uncomplicated | CPT/HCPCS: 90834 ==

== ENCOUNTER → 2021-10-29 16:01 | Outpatient (BNVA) | payer BC, MEDICAID, SELFPAY | PROVIDERS: PCP Family Medicine; Visit Provider Social Worker Clinical | DX: F33.2 Major depressive disorder, recurrent severe without psychotic features (principal); F10.10 Alcohol abuse, uncomplicated | CPT/HCPCS: 90834 ==

== ENCOUNTER → 2021-11-05 15:59 | Outpatient (BNVA) | payer BC, MEDICAID, SELFPAY | PROVIDERS: PCP Family Medicine; Visit Provider Social Worker Clinical | DX: F33.2 Major depressive disorder, recurrent severe without psychotic features (principal); F10.10 Alcohol abuse, uncomplicated | CPT/HCPCS: 90834 ==

== ENCOUNTER → 2021-11-06 07:26 | Outpatient (BNVA) | payer BC, MEDICAID, SELFPAY | PROVIDERS: PCP Family Medicine; Visit Provider Nurse Practitioner Psychiatric/Mental Health | DX: F33.2 Major depressive disorder, recurrent severe without psychotic features (principal); F10.10 Alcohol abuse, uncomplicated; G47.00 Insomnia, unspecified | CPT/HCPCS: 99214 ==

== ENCOUNTER → 2021-11-12 15:40 | Outpatient (BNVA) | payer BC, MEDICAID, SELFPAY | PROVIDERS: PCP Family Medicine; Visit Provider Social Worker Clinical | DX: F33.2 Major depressive disorder, recurrent severe without psychotic features (principal); F10.10 Alcohol abuse, uncomplicated | CPT/HCPCS: 90834 ==

== ENCOUNTER → 2021-11-26 15:32 | Outpatient (BNVA) | payer BC, MEDICAID, SELFPAY | PROVIDERS: PCP Family Medicine; Visit Provider Social Worker Clinical | DX: F33.2 Major depressive disorder, recurrent severe without psychotic features (principal); F10.10 Alcohol abuse, uncomplicated | CPT/HCPCS: 90834 ==

== ENCOUNTER → 2021-12-03 15:32 | Outpatient (BNVA) | payer BC, MEDICAID, SELFPAY | PROVIDERS: PCP Family Medicine; Visit Provider Social Worker Clinical | DX: F33.2 Major depressive disorder, recurrent severe without psychotic features (principal); F10.10 Alcohol abuse, uncomplicated | CPT/HCPCS: 90834 ==

== ENCOUNTER → 2021-12-10 15:33 | Outpatient (BNVA) | payer BC, MEDICAID, SELFPAY | PROVIDERS: PCP Family Medicine; Visit Provider Social Worker Clinical | DX: F33.2 Major depressive disorder, recurrent severe without psychotic features (principal); F10.10 Alcohol abuse, uncomplicated | CPT/HCPCS: 90834 ==

== ENCOUNTER → 2021-12-18 15:35 | Outpatient (BNVA) | payer BC, MEDICAID, SELFPAY | PROVIDERS: PCP Family Medicine; Visit Provider Nurse Practitioner Psychiatric/Mental Health | DX: F33.2 Major depressive disorder, recurrent severe without psychotic features (principal); F10.10 Alcohol abuse, uncomplicated; G47.00 Insomnia, unspecified | CPT/HCPCS: 99214 ==

== ENCOUNTER → 2021-12-24 15:44 | Outpatient (BNVA) | payer BC, SELFPAY | PROVIDERS: PCP Family Medicine; Visit Provider Social Worker Clinical | DX: F33.2 Major depressive disorder, recurrent severe without psychotic features (principal); F10.10 Alcohol abuse, uncomplicated | CPT/HCPCS: 90834 ==

== ENCOUNTER → 2021-12-31 15:47 | Outpatient (BNVA) | payer BC, SELFPAY | PROVIDERS: PCP Family Medicine; Visit Provider Social Worker Clinical | DX: F33.2 Major depressive disorder, recurrent severe without psychotic features (principal); F10.10 Alcohol abuse, uncomplicated | CPT/HCPCS: 90834 ==

== ENCOUNTER 2022-01-09 09:32 | Emergency (ER) | payer BC, MEDICAID, SELFPAY ==
[2022-01-09 09:51] VITALS: BP 97/64; PULSE 106; RESP 18; TEMP 38.8; O2SAT 99; BMI 21.0
--- NOTE | 2022-01-09 09:57 | XR_ITS ---
WS: [id number] XR chest 1V portable [id number] REASON FOR EXAM: fever FINDINGS: The chest is similar to previous chest x-ray 03/19/2016. The heart and mediastinum are within normal limits. Calcified granulomatous disease bilaterally. No definite acute pulmonary parenchymal or pleural abnormality. Bony thorax is intact without significant focal abnormality. XR/XR chest 1V portable [id number] IMPRESSION: No acute chest abnormality.
--- NOTE | 2022-01-09 09:59 | W.ED.FEVER ---
HPI - Fever General: Chief Complaint: General Medical Stated Complaint: Fever,headache Time Seen by Provider: 01/09/22 09:57 Source: patient Mode of arrival: ambulatory Limitations: no limitations History of Present Illness: Patient is a 26-year-old female with a history of depression here for concerns of fevers that began yesterday. She states fevers initially began as low-grade but by yesterday evening states they peaked at 103?104. Patient has been treating with Motrin and Tylenol. She complains of body aches and chills as well as a headache. She is not complaining of any neck pain or neck stiffness. She has no cough, congestion, chest pain, shortness of breath. No other URI symptoms. She does not complain of abdominal pain, nausea, vomiting, diarrhea. She has no urinary symptoms. No rash. No sick contacts. She has not received COVID or Influenza immunizations. MD elicited complaint: fever Onset (ago): day(s) (yesterday) Measured temperature: 103 F Associated symptoms: Reports chills and headache(s); Deny abdominal pain, flank pain, chest pain, diarrhea, dysuria, extremity pain, nasal congestion, nausea or vomiting Treatments prior to arrival fever: ibuprofen (5AM) Review of Systems Const: Reports: fever(s), chills and body aches Eyes: Denies: change in vision or blurry vision ENMT: Denies: throat pain, odynophagia, ear or mastoid pain or nasal congestion Card: Denies: chest pain, palpitations, irregular heart rhythm, edema, swelling of feet/ankles, lightheadedness, syncope, pre-syncope, dyspnea on exertion or orthopnea Resp: Denies: dyspnea, productive cough, non-productive cough, wheezing, stridor, pain on inspiration, hemoptysis or chest congestion GI: Denies: abdominal pain, nausea, vomiting or diarrhea : Denies: flank pain, dysuria or vaginal bleeding Musc: Denies: neck pain, back pain, extremity pain or joint pain Skin/Breast: Denies: rash Neuro: Reports: headache(s); Denies: numbness in extremities, weakness in extremities or sensory changes PFSH ED PFSH: Medical History Coarctation of aorta Hutch diverticulum of urinary bladder Insomnia Major depressive disorder, recurrent severe without psychotic features Personal history of self-harm Psychiatric care Recurrent UTI Family History Grandfather Hypertension Family/Other CAD (coronary artery disease) Other Cancer Diabetes Denies family history of Stroke Social History Smoking and tobacco status: never smoked Alcohol intake: former Marital status: Single Current occupational status: unemployed History of recent travel: No Current gender identity: Female Physical Exam Const: COMMON NORMALS: average body habitus, patient oriented x3, no limitations, healthy appearing, alert and well nourished GENERAL APPEARANCE: cooperative and ill appearing ORIENTATION/CONSCIOUSNESS: Yes awake, Yes oriented to person, Yes oriented to place and Yes oriented to time HENMT: COMMON NORMALS: normocephalic and atraumatic HEAD & SCALP: normal to inspection, normocephalic and atraumatic FACE & SINUS: normal facial exam THROAT: posterior oropharynx normal Eye: GENERAL EYE: appearance normal, both eyes and all related structures Neck/C-Spine: COMMON NORMALS: full ROM, no lymphadenopathy and no meningeal signs Resp: COMMON NORMALS: normal respiratory effort and clear to auscultation bilaterally AUSCULTATION: clear to auscultation bilaterally Cardio: COMMON NORMALS: regular rhythm RATE: tachycardic RHYTHM: regular rhythm GI: COMMON NORMALS: Normal to inspection, nondistended, normoactive bowel sounds present, Soft to palpation and non-tender PALPATION: Yes Soft to palpation : COMMON NORMALS: Yes no CVA tenderness BLADDER/KIDNEY EXAM: Yes no CVA tenderness Back/Pelvis: COMMON NORMALS: no CVA tenderness Extremity: COMMON NORMALS: normal to inspection GENERAL: Yes normal exam except as noted Neuro: LALO COMA SCALE: document GCS findings Lalo coma scale eye opening: Spontaneous Lalo coma scale verbal response: Orientated Lalo coma scale motor response: Obey commands Lalo coma scale total score: 15 COMMON NORMALS: patient oriented x3, moves all extremities, no focal motor deficits, no sensory deficits noted and gait normal SENSORIUM/ORIENTATION: Yes alert, Yes oriented to person, Yes oriented to place and Yes oriented to time MENINGEAL SIGNS: Yes no meningeal signs Skin: COMMON NORMALS: no rashes or lesions noted GENERAL SKIN EXAM: no rashes or lesions noted Course Vital Signs: Vital signs: Vital Signs Temperature 99.5 F 01/09/22 12:02 Pulse Rate 103 H 01/09/22 12:02 Respiratory Rate 14 01/09/22 12:02 Blood Pressure 93/64 01/09/22 12:02 Pulse Oximetry 98 01/09/22 12:02 MDM - Fever Medical Decision Making Patient is no longer febrile after antipyretics given here. Blood work shows a normal white count. Remainder of her work-up is unremarkable. UA not overly suspicious for UTI. She has no urinary complaints. CXR is normal. Patient's coronavirus PCR/respiratory panel is pending. At this time I strongly suspect viral etiology for her symptoms. Recommend continuing Tylenol/Motrin as needed for fevers, rest, fluids. Return to ED precautions verbally given. Lab Data : 01/09/22 10:30 01/09/22 10:30 Radiology Impressions Chest X-Ray 01/09/22 09:57 IMPRESSION: No acute chest abnormality. Laboratory Results WBC 5.5 10^3/uL (4.0-10.0) 01/09/22 10:30 RBC 4.20 10^6/uL (4.1-5.3) 01/09/22 10:30 Hgb 13.2 g/dL (11.5-15.3) 01/09/22 10:30 Hct 39.0 % (37.0-47.0) 01/09/22 10:30 MCV 92.9 fl (81-99) 01/09/22 10:30 MCH 31.4 pg (28.0-34.0) 01/09/22 10:30 MCHC 33.8 g/dL (30.0-36.0) 01/09/22 10:30 RDW 12.0 % (12.1-15.1) L 01/09/22 10:30 Plt Count 171 10^3/cmm (130-400) 01/09/22 10:30 MPV 10.6 fL (7.4-10.4) H 01/09/22 10:30 Neut % (Auto) 80.4 % 01/09/22 10:30 Lymph % (Auto) 6.0 % 01/09/22 10:30 Dubois % (Auto) 12.4 % 01/09/22 10:30 Eos % (Auto) 0.2 % 01/09/22 10:30 Baso % (Auto) 0.5 % 01/09/22 10:30 Neut # (Auto) 4.39 10^3/uL (1.8-7.7) 01/09/22 10:30 Lymph # (Auto) 0.3 10^3/uL (0.8-4.8) L 01/09/22 10:30 [place]ois # (Auto) 0.7 10^3/uL (0.2-0.9) 01/09/22 10:30 Eos # (Auto) 0.0 10^3/uL (0.0-0.8) 01/09/22 10:30 Baso # (Auto) 0.0 10^3/uL (0.0-0.1) 01/09/22 10:30 Nucleated RBC % (auto) 0 % 01/09/22 10:30 Nucleated RBCs # 0.0 /100WBC 01/09/22 10:30 Sodium 138 mmol/L (136-145) 01/09/22 10:30 Potassium 3.8 mmol/L (3.5-5.1) 01/09/22 10:30 Chloride 102 mmol/L (98-107) 01/09/22 10:30 Carbon Dioxide 23 mmol/L (22-29) 01/09/22 10:30 Anion Gap 16.8 (5-19) 01/09/22 10:30 BUN 8 mg/dL (6-20) 01/09/22 10:30 Creatinine 0.8 mg/dL (0.5-0.9) 01/09/22 10:30 GFR Calculation 88.1 mL/min (90-130) L 01/09/22 10:30 Glucose 113 mg/dL (65-115) 01/09/22 10:30 Calculated Osmolality 285 mOsm/kg (285-295) 01/09/22 10:30 Calcium 9.4 mg/dL (8.5-10.5) 01/09/22 10:30 Total Bilirubin 0.5 mg/dL (0.15-1.2) 01/09/22 10:30 AST 15 U/L (0-32) 01/09/22 10:30 ALT 9 U/L (0-33) 01/09/22 10:30 Alkaline Phosphatase 58 IU/L (35-105) 01/09/22 10:30 Total Protein 7.1 g/dL (6.6-8.7) 01/09/22 10:30 Albumin 4.7 g/dL (3.5-5.2) 01/09/22 10:30 Globulin 2.4 g/dL (1.3-4.6) 01/09/22 10:30 HCG, Qual Negative (Negative) 01/09/22 10:30 Urine Color Yellow (Yellow) 01/09/22 11:27 Urine Appearance Cloudy (CLEAR) 01/09/22 11:27 Urine pH 5 (5-7) 01/09/22 11:27 Ur Specific [place] 1.025 (1.005-1.030) 01/09/22 11:27 Urine Protein Neg (Negative) 01/09/22 11:27 Urine Glucose (UA) Norm (Normal) 01/09/22 11:27 Urine Ketones 2+ (Negative) H 01/09/22 11:27 Urine Blood Neg (Negative) 01/09/22 11:27 Urine Nitrate Negative (Negative) 01/09/22 11:27 Urine Bilirubin Neg (Negative) 01/09/22 11:27 Urine Urobilinogen Norm mg/dL (Negative) 01/09/22 11:27 Ur Leukocyte Esterase Trace (Negative) H 01/09/22 11:27 Urine RBC 0-4 /hpf (0-2) H 01/09/22 11:27 Urine WBC 0-4 /hpf (0-5) H 01/09/22 11:27 Ur Squamous Epith Cells 10-15 /hpf (0-5) H 01/09/22 11:27 Amorphous Sediment Not Reportable 01/09/22 11:27 Urine Bacteria Trace /hpf (NONE) 01/09/22 11:27 Discharge Plan Discharge Patient Disposition: Home Clinical Impression: Viral illness Condition: Stable Prescriptions: No Action duloxetine [Cymbalta] 60 mg capsule,delayed release(DR/EC) 60 mg PO .morning Qty: 30 3RF Rx Instructions: Take one capsule every morning Multiple Vitamins Tablet 2 tab PO DAILY 0RF Prilosec OTC 20 mg Tablet,Delayed Release (Dr/Ec) 20 mg PO DAILY PRN (Reason: UNKNOWN) 0RF Discharge Orders: Discharge ED (Routine); Ordered 01/09/22 Ordered By: Lety Stevenson Referrals: Jemma Malone MD [Primary Care Provider] - Patient Instructions: Viral Syndrome (ED) Stand Alone Forms: Work/School Release Coding Level of Care Code ED Information Assurance Analyst for [facility] Fwd Exam Comprehensive
[2022-01-09] MEDS: acetaminophen 500 mg Tablet 1000 MG PO (10:37)
[2022-01-09] MEDS: sodium chloride 0.9% 1,000 ML 999 ML IV (10:38)
[2022-01-09 10:53] LABS: Basophils % 0.5 %; Eosinophils % 0.2 %; Hemoglobin 13.2 g/dL (11.5-15.3); Lymphocytes # 0.3 10^3/uL (0.8-4.8); Mean Corpuscular HGB Conc 33.8 g/dL (30.0-36.0); Mean Corpuscular Hemoglobin 31.4 pg (28.0-34.0); Mean Corpuscular Volume 92.9 fl (81-99); Mean Platelet Volume 10.6 fL (7.4-10.4); Monocytes # 0.7 10^3/uL (0.2-0.9); Monocytes % 12.4 %; Neutrophils # 4.39 10^3/uL (1.8-7.7); Neutrophils % 80.4 %; Nucleated Red Blood Cells % 0 %; Platelet Count 171 10^3/cmm (130-400); White Blood Count 5.5 10^3/uL (4.0-10.0)
[2022-01-09 10:55] LABS: HCG, Serum Qual Negative (Negative)
[2022-01-09 11:01] LABS: Alanine Aminotransferase 9 U/L (0-33); Albumin Level 4.7 g/dL (3.5-5.2); Alkaline Phosphatase 58 IU/L (35-105); Anion Gap 16.8 (5-19); Aspartate Amino Transferase 15 U/L (0-32); Blood Urea Nitrogen 8 mg/dL (6-20); Calcium 9.4 mg/dL (8.5-10.5); Carbon Dioxide 23 mmol/L (22-29); Chloride 102 mmol/L (98-107); Globulin 2.4 g/dL (1.3-4.6); Glomerular Filtration Rate 88.1 mL/min (90-130); Glucose 113 mg/dL (65-115); Osmolality Calculated 285 mOsm/kg (285-295); Potassium 3.8 mmol/L (3.5-5.1); Sodium 138 mmol/L (136-145); Total Bilirubin 0.5 mg/dL (0.15-1.2); Total Protein 7.1 g/dL (6.6-8.7)
[2022-01-09 12:01] LABS: Bilirubin Urine Neg (Negative); Blood Urine Neg (Negative); Glucose Urine UA Norm (Normal); Ketones Urine 2+ (Negative); Nitrate Urine Negative (Negative); Protein Urine Neg (Negative); Specific Gravity, Urine 1.025 (1.005-1.030); Urine Appearance Cloudy (CLEAR); Urine Color Yellow (Yellow); Urobilinogen Urine Norm (Negative); pH Urine 5 (5-7)
[2022-01-09 12:02] VITALS: BP 93/64; PULSE 103; RESP 14; TEMP 37.5; O2SAT 98
[2022-01-09 12:02] LABS: Add Urine Culture? No; Add Urine Microscopic? YES; Bacteria Urine TRACE /hpf; Leukocyte Esterase Urine Trace (Negative); RBC Urine 0-4 /hpf (0-2); WBC Urine 0-4 /hpf (0-5)
[2022-01-09 14:35] LABS: Coronavirus 229E,HKU1,NL63,OC4 Not Detected (NOT DETECT)
[2022-01-09 14:36] LABS: Adenovirus Not Detected (NOT DETECT); Chlamydia Pneumoniae Not Detected (NOT DETECT); Human Metapneumovirus Not Detected (NOT DETECT); Human Rhinovirus/Enterovirus Not Detected (NOT DETECT); Influenza A Not Detected (NOT DETECT); Influenza A H1 Not Detected (NOT DETECT); Influenza A H1-2009 Not Detected (NOT DETECT); Influenza A H3 Not Detected (NOT DETECT); Influenza B Not Detected (NOT DETECT); Mycoplasma Pneumoniae Not Detected (NOT DETECT); Parainfluenza Virus Type 1 Not Detected (NOT DETECT); Parainfluenza Virus Type 2 Not Detected (NOT DETECT); Parainfluenza Virus Type 3 Not Detected (NOT DETECT); Parainfluenza Virus Type 4 Not Detected (NOT DETECT); Respiratory Syncytial Virus A Not Detected (NOT DETECT); Respiratory Syncytial Virus B Not Detected (NOT DETECT); SARS-COV-2 Detected (NOT DETECT)
--- NOTE | 2022-01-09 17:15 | PC.NURSE ---
PC TO PT INFORMED HER OF POSITIVE COVID TEST AND THE NEED TO QUARANTINE. PT VERBALIZED UNDERSTANDING NO FURTHER QUESTIONS. DID NOT VERBALIZE ANY FURTHER NEEDS.
== END 2022-01-09 12:40 | disposition home or self-care (01) ==
PROVIDERS: Emergency Provider Physician Assistant; PCP Family Medicine
DX: U07.1 COVID-19 (principal)
CPT/HCPCS: 71045; 80053; 81001; 84703; 85025; 87635; 96360; 99284; J7030

== ENCOUNTER 2022-03-23 10:07 | Emergency (ER) | payer BC, MEDICAID, SELFPAY ==
[2022-03-23 10:11] VITALS: BP 98/59; PULSE 109; RESP 14; TEMP 37.6; O2SAT 99; BMI 21.0
--- NOTE | 2022-03-23 11:40 | ED_ITS ---
HPI - Fever General: Chief Complaint: Fever Stated Complaint: Fever Time Seen by Provider: 03/23/22 11:15 History of Present Illness: Patient is a 26-year-old female comes to the ED with fever. Symptoms started last night. Patient says last night she developed a fever of 102 and she was also having body aches, headache and a sore throat. Endorses having some nausea currently but denies any episodes of emesis. Denies any shortness of breath, chest pain, abdominal pain, emesis, bladder or bowel symptoms. Denies any known sick contacts. Associated symptoms: Reports chills, headache(s) and nausea; Deny abdominal pain, flank pain, chest pain, diarrhea, dysuria, nasal congestion or vomiting Review of Systems Const: Reports: fever(s), chills and body aches; Denies: fatigue Eyes: Denies: change in vision or eye discomfort ENMT: Reports: throat pain and odynophagia; Denies: nasal discharge or nasal congestion Card: Denies: chest pain, palpitations, edema, swelling of feet/ankles, dyspnea on exertion or orthopnea Resp: Denies: dyspnea, productive cough or non-productive cough GI: Reports: nausea; Denies: abdominal pain, vomiting, diarrhea, constipation or hematochezia : Denies: flank pain, dysuria or hematuria Musc: Denies: neck pain, back pain or extremity swelling Skin/Breast: Denies: rash or new lesions Neuro: Reports: headache(s); Denies: numbness in extremities or weakness in extremities PFS ED PFSH: Medical History Coarctation of aorta Hutch diverticulum of urinary bladder Insomnia Major depressive disorder, recurrent severe without psychotic features Personal history of self-harm Psychiatric care Recurrent UTI Family History Grandfather Hypertension Family/Other CAD (coronary artery disease) Other Cancer Diabetes Denies family history of Stroke Social History Smoking and tobacco status: never smoked Alcohol intake: former Marital status: Single Current occupational status: unemployed History of recent travel: No Current gender identity: Female Physical Exam Const: COMMON NORMALS: no acute distress, patient oriented x3 and alert GENERAL APPEARANCE: cooperative and comfortable HENMT: COMMON NORMALS: normocephalic HEAD & SCALP: normocephalic MOUTH: Normal oral and palatal mucosa present THROAT: uvula midline and posterior oropharynx abnormal erythema Neck/C-Spine: COMMON NORMALS: supple GENERAL: Yes normal visual inspection Resp: COMMON NORMALS: normal respiratory effort, No retractions, No use of accessory muscles and clear to auscultation bilaterally AUSCULTATION: clear to auscultation bilaterally Cardio: COMMON NORMALS: regular rate, regular rhythm, S1 normal heart sound present, S2 normal heart sound present, No gallops present (Cardio), No clicks present (Cardio), No murmurs present (Cardio) and Peripheral pulses 2+ throughou t RATE: regular rate RHYTHM: regular rhythm HEART SOUNDS: S1 normal heart sound present and S2 normal heart sound present PERIPHERAL PULSES: Peripheral pulses 2+ throughout GI: COMMON NORMALS: Normal to inspection, nondistended, normoactive bowel sounds present, Soft to palpation, non-tender and no masses PALPATION: Yes Soft to palpation : COMMON NORMALS: Yes no CVA tenderness BLADDER/KIDNEY EXAM: Yes no CVA tenderness Back/Pelvis: COMMON NORMALS: no CVA tenderness Extremity: COMMON NORMALS: normal to inspection Neuro: COMMON NORMALS: patient oriented x3 SENSORIUM/ORIENTATION: Yes alert GAIT: Yes Normal gait present Skin: GENERAL SKIN EXAM: dry skin Course Vital Signs: Vital signs: Vital Signs Temperature 99.6 F 03/23/22 10:11 Pulse Rate 78 03/23/22 12:50 Respiratory Rate 14 03/23/22 12:50 Blood Pressure 124/78 03/23/22 12:50 Pulse Oximetry 98 03/23/22 12:50 Oxygen Delivery Me thod 03/23/22 10:11 MDM - Fever Medical Decision Making Patient is a 26-year-old female comes to the ED with sore throat and fever. Vitals are stable. Exam of patient shows some posterior oropharynx erythema. Rest of exam is benign. Influenza and COVID were negative. Strep positive. Patient was diagnosed with strep pharyngitis and discharged home with a antibiotic prescription and Zofran. Told to follow-up with PCP in the next week for reevaluation. Return to ED precautions given. Patient understood and agreed with plan. Lab Data I reviewed the patient's lab results. Laboratory Results Nasal Influ A H1 2009 PCR Not detected (NOT DETECT) 03/23/22 11:42 Coronavirus 229E (PCR) Not detected (NOT DETECT) 03/23/22 11:42 Influenza A (H1) PCR Not detected (NOT DETECT) 03/23/22 11:42 Influenza A (H3) PCR Not detected (NOT DETECT) 03/23/22 11:42 Influenza Type A (PCR) Not detected (NOT DETECT) 03/23/22 11:42 Influenza Type B (PCR) Not detected (NOT DETECT) 03/23/22 11:42 SARS-CoV-2 (PCR) Not detected (NOT DETECT) 09 11:42 Group A Strep Rapid Positive (Negative) H 03/23/22 11:42 Discharge Plan Discharge Patient Disposition: Home Clinical Impression: Strep pharyngitis Condition: Stable Prescriptions: New clindamycin HCl 150 mg capsule 300 mg PO QID 7 Days Qty: 56 0RF ondansetron 4 mg tablet,disintegrating 4 mg PO Q8H PRN (Reason: nausea and vomiting) Qty: 20 0RF No Action duloxetine [Cymbalta] 60 mg capsule,delayed release(DR/EC) 60 mg PO .morning Qty: 30 3RF Rx Instructions: Take one capsule every morning Multiple Vitamins Tablet 2 tab PO DAILY Prilosec OTC 20 mg Tablet,Delayed Release (Dr/Ec) 20 mg PO DAILY PRN (Reason: UNKNOWN) Discharge Orders: Discharge ED (Routine); Ordered 03/23/22 Ordered By: Antonio Peña Referrals: Jemma Malone MD [Primary Care Provider] - Discharge Diet: Regular Discharge Activity: Resume usual activity Patient Instructions: Strep Throat (DC) Activity Restrictions/Additional Instructions: Follow-up with medical provider as directed in the next 5 to 7 days for reevaluation. Take medications as prescribed. Make sure you drink plenty of fluids and stay hydrated. Return to the ER or your medical provider if condition worsens. Please read and understand discharge instructions. Thank you for choosing [facility] for your healthcare needs today. Please realize this is an emergency room and that we are providing you with a medical screening exam and this may not be complete and all inclusive of all the testing and or work up that you may need to determine your ailment or severity of your illness. It is very important that you follow up as instructed or that you return to the Emergency Department should you have concerns or if your condition changes or worsens in any way. Stand Alone Forms: Work/School Release Coding Level of Care Code ED Health Care Attorney for [employer] Exam Comprehensive
[2022-03-23] MEDS: ondansetron 2 mg/ML SDV 2 mL 4 MG IM (11:45)
[2022-03-23 12:22] LABS: Rapid Strep A Test Positive (Negative)
[2022-03-23 12:50] VITALS: BP 124/78; PULSE 78; RESP 14; O2SAT 98
[2022-03-23 14:01] LABS: Adenovirus Not Detected (NOT DETECT); Chlamydia Pneumoniae Not Detected (NOT DETECT); Coronavirus 229E,HKU1,NL63,OC4 Not Detected (NOT DETECT); Human Metapneumovirus Not Detected (NOT DETECT); Human Rhinovirus/Enterovirus Not Detected (NOT DETECT); Influenza A Not Detected (NOT DETECT); Influenza A H1 Not Detected (NOT DETECT); Influenza A H1-2009 Not Detected (NOT DETECT); Influenza A H3 Not Detected (NOT DETECT); Influenza B Not Detected (NOT DETECT); Mycoplasma Pneumoniae Not Detected (NOT DETECT); Parainfluenza Virus Type 1 Not Detected (NOT DETECT); Parainfluenza Virus Type 2 Not Detected (NOT DETECT); Parainfluenza Virus Type 3 Not Detected (NOT DETECT); Parainfluenza Virus Type 4 Not Detected (NOT DETECT); Respiratory Syncytial Virus A Not Detected (NOT DETECT); Respiratory Syncytial Virus B Not Detected (NOT DETECT); SARS-COV-2 Not Detected (NOT DETECT)
[2022-03-23 14:07] LABS: Results from Genmark
== END 2022-03-23 12:51 | disposition home or self-care (01) ==
PROVIDERS: Emergency Provider Physician Assistant; PCP Family Medicine
DX: J02.0 Streptococcal pharyngitis (principal); Z20.822 Contact with and (suspected) exposure to COVID-19
CPT/HCPCS: 87631; 87635; 87880; 96372; 99284; J2405

== ENCOUNTER 2022-04-13 15:39 | Outpatient (CLI) | payer BC, MEDICAID, SELFPAY ==
--- NOTE | 2022-04-13 16:00 | CT_ITS ---
WS: [id number] CTA THORACIC AORTA WITH AND WITHOUT HISTORY: Coarctation of aorta, history of coarctation repair as an infant. TECHNIQUE: CT imaging of the thorax is performed with and without contrast. After noncontrast imaging is performed, CT angiogram is performed during injection of Omnipaque 300; 95 mL IV.. Sagittal and c oronal reconstructions, sagittal and coronal MIP imaging is submitted. All CT scans at [facility] use at least one of these dose optimization techniques: automated exposure control; mA and/or kV adjustment per patient size (includes targeted exams where dose is matched to clinical indication); or iterative reconstruction. DLP: 941.41 mGy.cm COMPARISON: 04/28/2018 Normal size thoracic aorta. No dilatation. No dissection. Surgical clip at the AP window from prior c oarctation repair. There is no change in caliber of aorta. No calcification or atherosclerotic plaque . Origin of the great vessels is normal. Heart size is normal. Suprarenal abdominal aorta is normal. Lungs are clear. No pulmonary mass or nodule. No pericardial or pleural effusions. Pulmonary arteries are normal size with no filling defects. Normal soft tissues. Upper abdomen is negative. Origin of t he celiac axis and SMA is negative. No osseous abnormalities. No rib notching. CT/CT angio chest [id number] IMPRESSION: 1. Normal appearance of the thoracic aorta. Postsurgical changes in the AP win jody from prior coarctation repair. 2. No dissection or aneurysm. 3. Normal pulmonary artery.
[2022-04-13] MEDS: iohexol 350 mg/mL 100 mL Btl IV (16:01)
== END 2022-04-13 15:40 | disposition home or self-care (01) ==
LOC: RAD 15:40
PROVIDERS: PCP Family Medicine; Visit Provider Internal Medicine
DX: Q25.1 Coarctation of aorta (principal)
CPT/HCPCS: 71275

== ENCOUNTER 2022-04-26 18:15 | Emergency (ER) | payer BC, MEDICAID, SELFPAY ==
--- NOTE | 2022-04-26 18:45 | ED_ITS ---
HPI - Extremity Injury (Upper) General: Chief Complaint: Extremity Injury, Upper Stated Complaint: Left arm pain Time Seen by Provider: 04/26/22 18:42 History of Present Illness: 26-year-old female comes in today for complaints of left arm pain. Patient reports pain is mainly in the upper arm but radiates into the lower arm. Patient has increased pain with shoulder joint movement. No obvious deformity is noted. Patient has a history of major depressive disorder, alcohol abuse, and migraine and coarctation of aorta. Review of Systems General: Reports: 10 or more systems reviewed and unremarkable except in HPI and below Card: Denies: chest pain Resp: Denies: dyspnea Musc: Reports: extremity pain Skin/Breast: Denies: rash PFSH ED PFSH: Medical History Coarctation of aorta Hutch diverticulum of urinary bladder Insomnia Major depressive disorder, recurrent severe without psychotic features Personal history of self-harm Psychiatric care Recurrent UTI Family History Grandfather Hypertension Family/Other CAD (coronary artery disease) Other Cancer Diabetes Denies family history of Stroke Social History Smoking and tobacco status: never smoked Alcohol intake: former Marital status: Single Current occupational status: unemployed History of recent travel: No Current gender identity: Female Physical Exam Const: COMMON NORMALS: alert HENMT: COMMON NORMALS: normocephalic HEAD & SCALP: normocephalic Neck/C-Spine: COMMON NORMALS: full ROM Resp: COMMON NORMALS: normal respiratory effort Cardio: COMMON NORMALS: regular rate RATE: regular rate Extremity: LEFT UPPER EXTREMITY: Yes shoulder joint (No palpable abnormality, tenderness to palpation anteriorly) Left shoulder joint: Yes inspection, Yes palpation and Yes ROM, Yes upper arm (Minimal to no swelling, tenderness to palpation) Left upper arm: Yes inspection, Yes palpation and Yes neurovascular exam and Yes lower arm (Mild tenderness no obvious deformity) Neuro: SENSORIUM/ORIENTATION: Yes alert Skin: COMMON NORMALS: turgor normal GENERAL SKIN EXAM: turgor normal Course Vital Signs: Vital signs: Vital Signs Temperature 98.4 F 04/26/22 19:03 Pulse Rate 97 04/26/22 19:03 Respiratory Rate 16 04/26/22 19:03 Blood Pressure 105/71 04/26/22 19:03 Pulse Oximetry 83 L 04/26/22 19:03 Oxygen Delivery Me thod 04/26/22 19:03 MDM - Extremity Injury (Upper) Medical Decision Making 26-year-old female comes in today for evaluation of injury from a fall last night. Patient reports falling and catching herself but since then has had pain and discomfort to the left upper arm. Patient appears in mild pain. No obvious deformity is noted to the arm but tenderness is noted on palpation and reduced shoulder range of motion. Differential diagnosis includes fracture, sprain, dislocation, contusion. X-ray notes no obvious abnormality. Reviewed exam with patient with recommendations for treatment and follow-up. Patient reported understanding and agreed to plan. Discharge Plan Discharge Patient Disposition: Home Clinical Impression: Injury of left upper extremity Qualifiers: Encounter type: initial encounter Qualified Code(s): S49.92XA - Unspecified injury of left shoulder and upper arm, initial encounter Shoulder sprain Qualifiers: Encounter type: initial encounter Shoulder sprain type: unspecified sprain Laterality: left Qualified Code(s): S43.402A - Unspecified sprain of left shoulder joint, initial encounter Condition: Stable Prescriptions: New ibuprofen 600 mg tablet 600 mg PO Q6H PRN (Reason: pain) Qty: 20 0RF hydrocodone-acetaminophen 5-325 mg tablet 1 tab PO Q8H PRN (Reason: pain (scale score 7-10)) Qty: 6 0RF No Action duloxetine [Cymbalta] 60 mg capsule,delayed release(DR/EC) 60 mg PO .morning Qty: 30 3RF Rx Instructions: Take one capsule every morning Multiple Vitamins Tablet 2 tab PO DAILY Prilosec OTC 20 mg Tablet,Delayed Release (Dr/Ec) 20 mg PO DAILY PRN (Reason: UNKNOWN) ondansetron 4 mg tablet,disintegrating 4 mg PO Q8H PRN (Reason: nausea and vomiting) Qty: 20 0RF Discharge Orders: Discharge ED (Routine); Ordered 04/26/22 Ordered By: Homer Pena Referrals: Jemma Malone MD [Primary Care Provider] - Discharge Diet: Usual diet Discharge Activity: Increase activity as tolerated Patient Instructions: Musculoskeletal Pain (ED) Activity Restrictions/Additional Instructions: Activity as tolerated. Gentle stretching and range of motion exercises. Use ice and heat to help control pain. Use acetaminophen and ibuprofen for further control of pain. Use hydrocodone for severe pain. Follow-up with primary care in 3 days for recheck. Return to ED for new concerns. Coding Level of Care Code ED Tool [employer] Maker for [employer] Exam Detailed
--- NOTE | 2022-04-26 18:48 | XRR_ITS ---
PROCEDURE INFORMATION: Exam: XR Left Humerus Exam date and time: 04/26/2022 7:02 PM Age: 26 years old Clinical indication: Injury or trauma; Fall; Blunt trauma (contusions or hematomas); Arm, upper; Left; Additional info: Fall, injury TECHNIQUE: Imaging protocol: Radiologic exam of the Left humerus. Views: 2 or more views. COMPARISON: No relevant prior studies available. FINDINGS: Bones/joints: Normal. Soft tissues: Normal. XR/[place] [id number] IMPRESSION: No acute findings.
--- NOTE | 2022-04-26 18:48 | XRR_ITS ---
PROCEDURE INFORMATION: Exam: XR Left Forearm Exam date and time: 04/26/2022 6:58 PM Age: 26 years old Clinical indication: Injury or trauma; Fall; Blunt trauma (contusions or hematomas); Arm, lower; Left; Additional info: Fall injury TECHNIQUE: Imaging protocol: Radiologic exam of the Left forearm. Views: 2 views. COMPARISON: No relevant prior studies available. FINDINGS: Bones/joints: Normal. Soft tissues: Normal. XR/XR forearm LT 2V [id number] IMPRESSION: No acute findings.
[2022-04-26 19:03] VITALS: BP 105/71; PULSE 97; RESP 16; TEMP 36.9; O2SAT 83; BMI 23.2
[2022-04-26] MEDS: ibuprofen 600 mg Tablet PO (19:24)
[2022-04-26] MEDS: HYDROcodone-acetaminophen 5-325 mg Tablet 1 TAB PO (19:24)
== END 2022-04-26 19:30 | disposition home or self-care (01) ==
PROVIDERS: Emergency Provider Nurse Practitioner Family; PCP Family Medicine
DX: S43.402A Unspecified sprain of left shoulder joint, initial encounter (principal); X58.XXXA Exposure to other specified factors, initial encounter
CPT/HCPCS: 73060; 73090; 99283

== ENCOUNTER 2022-05-20 12:53 | Emergency (ER) | payer BC, MEDICAID, SELFPAY ==
[2022-05-20 14:25] VITALS: BMI 21.7
[2022-05-20 14:27] VITALS: BP 106/73; PULSE 76; RESP 18; TEMP 36.7; O2SAT 97
[2022-05-20 14:58] LABS: Basophils # 0.1 10^3/uL (0.0-0.1); Basophils % 0.9 %; Eosinophils # 0.1 10^3/uL (0.0-0.8); Eosinophils % 1.4 %; Hematocrit 41.1 % (37.0-47.0); Lymphocytes # 1.9 10^3/uL (0.8-4.8); Lymphocytes % 20.5 %; Mean Corpuscular HGB Conc 34.1 g/dL (30.0-36.0); Mean Corpuscular Hemoglobin 31.7 pg (28.0-34.0); Mean Corpuscular Volume 93.2 fl (81-99); Mean Platelet Volume 9.8 fL (7.4-10.4); Monocytes # 0.6 10^3/uL (0.2-0.9); Monocytes % 6.4 %; Neutrophils # 6.52 10^3/uL (1.8-7.7); Neutrophils % 70.3 %; Nucleated Red Blood Cells % 0 %; Platelet Count 202 10^3/cmm (130-400); Red Blood Count 4.41 10^6/uL (4.1-5.3); Red Cell Distribution Width 11.9 % (12.1-15.1); White Blood Count 9.3 10^3/uL (4.0-10.0)
[2022-05-20 15:15] LABS: HCG, Serum Qual Negative (Negative)
[2022-05-20 15:24] LABS: Alanine Aminotransferase 8 U/L (0-33); Albumin Level 4.6 g/dL (3.5-5.2); Alkaline Phosphatase 67 U/L (35-105); Anion Gap 16.9 (5-19); Aspartate Amino Transferase 13 U/L (0-32); Blood Urea Nitrogen 10 mg/dL (6-20); Calcium 9.8 mg/dL (8.5-10.5); Carbon Dioxide 26 mmol/L (22-29); Chloride 104 mmol/L (98-107); Globulin 3.1 g/dL (1.3-4.6); Glomerular Filtration Rate 122.8 mL/min (90-130); Glucose 97 mg/dL (65-115); Lipase 14 U/L (13-60); Osmolality Calculated 295 mOsm/kg (285-295); Potassium 3.9 mmol/L (3.5-5.1); Sodium 143 mmol/L (136-145); Total Bilirubin 0.9 mg/dL (0.15-1.2); Total Protein 7.7 g/dL (6.6-8.7)
[2022-05-20 17:26] LABS: Add Urine Microscopic? NO; Charge for UA Resulting for Rev
--- NOTE | 2022-05-20 17:38 | ED_ITS ---
HPI - Abdominal Pain General: Chief Complaint: Abdominal Pain Stated Complaint: right side pain Time Seen by Provider: 05/20/22 17:20 History of Present Illness: Patient comes in today with complaints of right lower quadrant abdominal and pelvic pain. Patient denies any diarrhea or c onstipation. Patient does report some nausea with some vomiting. Patient appears nontoxic. Patient appears in mild to moderate pain. Patient has a history of alcohol abuse, major depression, recurrent UTI. Associated Symptoms: Reports nausea and vomiting; Denies fever(s) Related Data: Date of Last Menstrual Period: 05/11/22 Review of Systems Const: Denies: fever(s) GI: Reports: abdominal pain, nausea and vomiting PFSH ED PFSH: Medical History Coarctation of aorta Hutch diverticulum of urinary bladder Insomnia Major depressive disorder, recurrent severe without psychotic features Personal history of self-harm Psychiatric care Recurrent UTI Family History Grandfather Hypertension Family/Other CAD (coronary artery disease) Other Cancer Diabetes Denies family history of Stroke Social History Smoking and tobacco status: never smoked Alcohol intake: former Marital status: Single Current occupational status: unemployed History of recent travel: No Current gender identity: Female Female Reproductive History: Date of last menstrual period: 05/11/22 Physical Exam Const: COMMON NORMALS: alert HENMT: COMMON NORMALS: normocephalic HEAD & SCALP: normocephalic Neck/C-Spine: COMMON NORMALS: full ROM Resp: COMMON NORMALS: normal respiratory effort and clear to auscultation bilaterally AUSCULTATION: clear to auscultation bilaterally Cardio: COMMON NORMALS: regular rate RATE: regular rate GI: COMMON NORMALS: Soft to palpation PALPATION: Yes Soft to palpation and Yes Tenderness to palpation present (GI) (Right lower quadrant pelvic area) : COMMON NORMALS: Yes no CVA tenderness BLADDER/KIDNEY EXAM: Yes no CVA tenderness Back/Pelvis: COMMON NORMALS: no CVA tenderness and thoracic and lumbar spine normal to inspection Neuro: SENSORIUM/ORIENTATION: Yes alert Skin: COMMON NORMALS: turgor normal GENERAL SKIN EXAM: turgor normal Course Vital Signs: Vital signs: Vital Signs Temperature 98.1 F 11/09/22 14:27 Pulse Rate 76 05/20/22 14:27 Respiratory Rate 18 05/20/22 14:27 Blood Pressure 106/73 05/20/22 14:27 Pulse Oximetry 97 05/20/22 14:27 Oxygen Delivery Me thod 05/20/22 14:27 MDM - Abdominal Pain Medical Decision Making Patient comes in today for complaints of right lower quadrant abdominal pain patient denies any diarrhea or constipation. Patient reports no fever. On exam abdomen soft with normoactive bowel sounds. Patient does have some right lower quadrant abdominal pelvic pain tenderness. Differential diagnosis includes appendicitis, ovarian cyst, mittelschmerz, UTI, renal calculi. CBC CMP and urinalysis were unremarkable. Ultrasound of the pelvis noted a 2 cm ovarian cyst and some free fluid in the pelvis. Feel the patient is probably had a rupt ured ovarian cyst, there is no sign of hemorrhage or torsion or other abdominal surgical acute needs. Patient be treated with pain meds and recommended to follow-up with primary care or UNDERWRITING OPERATIONS MANAGER. Lab Data : 05/20/22 14:46 05/20/22 14:46 Labs/Radiology: Radiology Impressions Pelvis Ultrasound 05/20/22 18:07 IMPRESSION: 1. Several right ovarian follicular cysts measuring up to 15 mm. Color blood flow is seen in the right ovary. 2. Left ovary 2 cm likely follicular cyst. Color blood flow is seen in the left ovary. 3. Small amount of nonspecific free fluid in the pelvis. Laboratory Results WBC 9.3 10^3/uL (4.0-10.0) 05/20/22 14:46 RBC 4.41 10^6/uL (4.1-5.3) 05/20/22 14:46 Hgb 14.0 g/dL (11.5-15.3) 05/20/22 14:46 Hct 41.1 % (37.0-47.0) 05/20/22 14:46 MCV 93.2 fl (81-99) 05/20/22 14:46 MCH 31.7 pg (28.0-34.0) 05/20/22 14:46 MCHC 34.1 g/dL (30.0-36.0) 05/20/22 14:46 RDW 11.9 % (12.1-15.1) L 05/20/22 14:46 Plt Count 202 10^3/cmm (130-400) 05/20/22 14:46 MPV 9.8 fL (7.4-10.4) 05/20/22 14:46 Neut % (Auto) 70.3 % 05/20/22 14:46 Lymph % (Auto) 20.5 % 05/20/22 14:46 [place] % (Auto) 6.4 % 05/20/22 14:46 Eos % (Auto) 1.4 % 05/20/22 14:46 Baso % (Auto) 0.9 % 05/20/22 14:46 Neut # (Auto) 6.52 10^3/uL (1.8-7.7) 05/20/22 14:46 Lymph # (Auto) 1.9 10^3/uL (0.8-4.8) 05/20/22 14:46 [place] # (Auto) 0.6 10^3/uL (0.2-0.9) 05/20/22 14:46 Eos # (Auto) 0.1 10^3/uL (0.0-0.8) 05/20/22 14:46 Baso # (Auto) 0.1 10^3/uL (0.0-0.1) 05/20/22 14:46 Nucleated RBC % (auto) 0 % 05/20/22 14:46 Nucleated RBCs # 0.0 /100WBC 05/20/22 14:46 Sodium 143 mmol/L (136-145) 05/20/22 14:46 Potassium 3.9 mmol/L (3.5-5.1) 05/20/22 14:46 Chloride 104 mmol/L (98-107) 05/20/22 14:46 Carbon Dioxide 26 mmol/L (22-29) 05/20/22 14:46 Anion Gap 16.9 (5-19) 05/20/22 14:46 BUN 10 mg/dL (6-20) 05/20/22 14:46 Creatinine 0.6 mg/dL (0.5-0.9) 05/20/22 14:46 GFR Calculation 122.8 mL/min (90-130) 05/20/22 14:46 Glucose 97 mg/dL (65-115) 05/20/22 14:46 Calculated Osmolality 295 mOsm/kg (285-295) 05/20/22 14:46 Calcium 9.8 mg/dL (8.5-10.5) 05/20/22 14:46 Total Bilirubin 0.9 mg/dL (0.15-1.2) 05/20/22 14:46 AST 13 U/L (0-32) 05/20/22 14:46 ALT 8 U/L (0-33) 05/20/22 14:46 Alkaline Phosphatase 67 U/L (35-105) 05/20/22 14:46 Total Protein 7.7 g/dL (6.6-8.7) 05/20/22 14:46 Albumin 4.6 g/dL (3.5-5.2) 05/20/22 14:46 Globulin 3.1 g/dL (1.3-4.6) 05/20/22 14:46 Lipase 14 U/L (13-60) 05/20/22 14:46 HCG, Qual Negative (Negative) 05/20/22 14:46 Urine Color Yellow (Yellow) 05/20/22 17:00 Urine Appearance Clear (CLEAR) 05/20/22 17:00 Urine pH 5 (5-7) 05/20/22 17:00 Ur Specific [place] 1.025 (1.005-1.030) 05/20/22 17:00 Urine Protein Neg (Negative) 05/20/22 17:00 Urine Glucose (UA) Norm (Normal) 05/20/22 17:00 Urine Ketones 1+ (Negative) H 05/20/22 17:00 Urine Blood Neg (Negative) 05/20/22 17:00 Urine Nitrate Negative (Negative) 05/20/22 17:00 Urine Bilirubin 1+ (Negative) H 05/20/22 17:00 Urine Urobilinogen Norm mg/dL (Negative) 05/20/22 17:00 Ur Leukocyte Esterase Negative (Negative) 05/20/22 17:00 Discharge Plan Discharge Patient Disposition: Home Clinical Impression: Pelvic pain Ovarian cyst Qualifiers: Laterality: unspecified laterality Qualified Code(s): N83.209 - Unspecified ovarian cyst, unspecified side Condition: Stable Prescriptions: New hydrocodone-acetaminophen 5-325 mg tablet 1 tab PO Q8H PRN (Reason: pain (scale score 7-10)) Qty: 5 0RF Continued ibuprofen 600 mg tablet 600 mg PO Q6H PRN (Reason: pain) Qty: 20 0RF No Action duloxetine [Cymbalta] 60 mg capsule,delayed release(DR/EC) 60 mg PO .morning Qty: 30 3RF Rx Instructions: Take one capsule every morning Multiple Vitamins Tablet 2 tab PO DAILY Prilosec OTC 20 mg Tablet,Delayed Release (Dr/Ec) 20 mg PO DAILY PRN (Reason: UNKNOWN) ondansetron 4 mg tablet,disintegrating 4 mg PO Q8H PRN (Reason: nausea and vomiting) Qty: 20 0RF hydrocodone-acetaminophen 5-325 mg tablet 1 tab PO Q8H PRN (Reason: pain (scale score 7-10)) Qty: 6 0RF Discharge Orders: Discharge ED (Routine); Ordered 05/20/22 Ordered By: Homer Pena Referrals: Jemma Malone MD [Primary Care Provider] - Discharge Diet: Usual diet Discharge Activity: Increase activity as tolerated Patient Instructions: Ovarian Cyst (ED), Opioid Safety Activity Restrictions/Additional Instructions: Home and rest. Use ice or heat for further comfort. Use acetaminophen or ibuprofen to control pain. Use hydrocodone for severe pain. Follow-up with primary care or UNDERWRITING OPERATIONS MANAGER for further evaluation and treatment. Return to ER for worsening symptoms such as uncontrolled pain, bleeding through more than 1 pad in 1 hour, fever greater than 100.4, or new concerns. 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
[2022-05-20 17:58] LABS: Bilirubin Urine 1+ (Negative); Blood Urine Neg (Negative); Glucose Urine UA Norm (Normal); Ketones Urine 1+ (Negative); Nitrate Urine Negative (Negative); Protein Urine Neg (Negative); Specific Gravity, Urine 1.025 (1.005-1.030); Urine Appearance Clear (CLEAR); Urine Color Yellow (Yellow); pH Urine 5 (5-7)
[2022-05-20 17:59] LABS: Leukocyte Esterase Urine Negative (Negative); Urobilinogen Urine Norm (Negative)
--- NOTE | 2022-05-20 18:07 | USR_ITS ---
PROCEDURE INFORMATION: Exam: US Nonobstetric Pelvis; Complete Exam date and time: 05/20/2022 7:32 PM Age: 26 years old Clinical indication: Pelvic pain; Patient HX: Negative qual hcg g1-p1, vaginal 5 yrs ago. No hormones or bcps. No history of pelvic surgery. Per patient, history of prior ovarian cysts, but this one is the worst. ; Additional info: Right side pelvic pain, probable ovarian cyst TECHNIQUE: Imaging protocol: Transabdominal pelvic nonobstetric ultrasound. Complete exam. Real time ultrasound with image documentation. COMPARISON: CT kidney stone [id number] 05/16/2016 5:31 PM FINDINGS: Uterus: Uterus is normal in size and measures 7.9 x 5.2 by 5.9 cm. Endometrium is normal thickness measuring 11 mm. Right ovary/adnexa: Several right ovarian follicular cysts measuring up to 15 mm. Color blood flow is seen in the right ovary. Left ovary/adnexa: Left ovary 2 cm likely follicular cyst. Color blood flow is seen in the left ovary. Intraperitoneal space: Small amount lobe nonspecific free fluid in the pelvis. Urinary bladder: Normal. US/US pelvic complete* [id number] IMPRESSION: 1. Several right ovarian follicular cysts measuring up to 15 mm. Color blood flow is seen in the right ovary. 2. Left ovary 2 cm likely follicular cyst. Color blood flow is seen in the left ovary. 3. Small amount of nonspecific free fluid in the pelvis.
[2022-05-20] MEDS: ketorolac 10 mg Tablet PO (18:11)
[2022-05-20] MEDS: ondansetron 4 MG Tablet PO (18:57)
[2022-05-20] MEDS: HYDROcodone-acetaminophen 5-325 mg Tablet 1 TAB PO (18:57)
== END 2022-05-20 20:29 | disposition home or self-care (01) ==
PROVIDERS: Physician Assistant; Emergency Provider Nurse Practitioner Family; PCP Family Medicine
DX: N83.202 Unspecified ovarian cyst, left side (principal); N83.201 Unspecified ovarian cyst, right side
CPT/HCPCS: 36415; 76856; 80053; 81003; 83690; 84703; 85025; 99285; Q0162

== ENCOUNTER 2022-11-16 12:53 | Outpatient (CLI) | payer BC, MEDICAID, SELFPAY ==
--- NOTE | 2022-11-16 13:09 | US_ITS ---
WS: [id number] ULTRASOUND BREAST RIGHT TECHNIQUE: Ultrasound right breast CLINICAL INFORMATION: BREAST LUMP COMPARISON: None. FINDINGS: Ultrasound 2 to 4:00 position area of concern with additional ultrasound 6, 9, and 12:00 positions du e to breast pain. Dense underlying parenchymal tissue in the area of concern at the 4:00 position. No suspicious abnorm alities in this area. Additional dense parenchymal tissue in the other surveyed areas throughout the breast. No suspicious lesions to target for biopsy. Findings are benign. Recommend annual screening m ammography age 40. US/US breast RT complete [id number] IMPRESSION: BI-RADS 2 benign Annual screening mammography age 40
== END 2022-11-16 12:54 | disposition home or self-care (01) ==
PROVIDERS: PCP Family Medicine; Visit Provider Family Medicine
DX: N63.0 Unspecified lump in unspecified breast (principal)
CPT/HCPCS: 76641

== ENCOUNTER → 2023-03-16 09:30 | Outpatient (BNVA) | payer BC, SELFPAY | PROVIDERS: PCP Family Medicine; Visit Provider Family Medicine Adult Medicine | DX: R30.0 Dysuria (principal); N39.0 Urinary tract infection, site not specified; Z98.890 Other specified postprocedural states; Z86.79 Personal history of other diseases of the circulatory system | CPT/HCPCS: 81000 ==

== ENCOUNTER → 2023-03-31 11:25 | Outpatient (BNVA) | payer BC, SELFPAY | PROVIDERS: PCP Family Medicine; Visit Provider Nurse Practitioner | DX: J02.9 Acute pharyngitis, unspecified (principal); R50.9 Fever, unspecified | CPT/HCPCS: 87426; 87880 ==

== ENCOUNTER 2023-05-14 15:40 | Outpatient (CLI) | payer BC, MEDICAID, SELFPAY ==
--- NOTE | 2023-05-14 15:30 | USCV_ITS ---
Kassandra Cerrato Age: 27 Gender: F : 1995 Exam Date: 05/14/2023 16:28 Ordering Phys: Kole Lopez M.D ([email or web address]) Technologist: BRIAN Exam Location: [facility] – [place] Indication: repaired coarctation of aorta BP: 90 / 50 HR: 95 Rhythm: Sinus Technical Quality: Good MEASUREMENTS (Male / Female) Normal Values 2D ECHO LV Diastolic Diameter PLAX 3.9 cm 4.2 - 5.9 / 3.9 - 5.3 cm LV Systolic Diameter PLAX 2.4 cm IVS Diastolic Thickness 0.8 cm 0.6 - 1.0 / 0.6 - 0.9 cm IVS Systolic Thickness 0.7 cm LVPW Diastolic Thickness 0.6 cm 0.6 - 1.0 / 0.6 - 0.9 cm LVPW Systolic Thickness 1.4 cm LVOT Diameter 2.0 cm LV Ejection Fraction 2D Teich 69.1 % LV Ejection Fraction MOD 2C 50.0 % LV Ejection Fraction 2C AL 50.1 % LA Diameter 2.2 cm LA Width 3.0 cm LA Height 2.7 cm RA Width 3.1 cm RA Height 4.1 cm Aorta at Sinotubular Diameter 2.6 cm IVC Diameter 1.3 cm M-MODE Aortic Annulus Diameter 2.6 cm LA Ao Ratio MM 1.1 MV E Point Septal Separation 0.3 cm DOPPLER AV Peak Velocity 130.0 cm/s LVOT Peak Velocity 110.0 cm/s AV Area Cont Eq vti 2.5 cm squared AV Area Cont Eq pk 2.7 cm squared MV Peak Velocity 103.0 cm/s MV Area PHT 4.4 cm squared Mitral E to A Ratio 1.4 MV E' Velocity 61.5 cm/s Mitral E to MV E' Ratio 5.6 Mitral E to LV E' Lateral Ratio 4.8 Mitral E to LV E' Septal Ratio 6.8 TR Peak Velocity 158.3 cm/s TR Peak Gradient 10.0 mmHg Right Atrial Pressure 5.0 mmHg Pulmonary Artery Systolic Pressu 15.0 mmHg PV Peak Velocity 83.0 cm/s RV Acceleration Time 0.1 s RV Ejection Time 0.3 s RV AcT/ET 0.4 FINDINGS Left Ventricle Left ventricle is normal in size. LV systolic function is normal with EF 50 to 55%. No regional wall motion maladies are seen Right Ventricle Normal in size and function Right Atrium Normal in size Left Atrium Normal in size Mitral Valve Structurally normal mitral valve. Trace mitral regurgitation. Aortic Valve Structurally normal aortic valve. No significant stenosis or regurgitation. Tricuspid Valve Mild tricuspid regurgitation. Pulmonary artery systolic pressure is normal. Pulmonic Valve Not well visualized Pericardium Normal Aorta Normal in size. No signifcant gradient noted in the aorta. No evidence of re-coarctation. IVC Appears to be normal CONCLUSIONS LV systolic function is normal with EF of 55%. Trace mitral regurgitation Mild tricuspid regurgitation No evidence of recoarctation Compared to prior echocardiogram from 2019, no significant changes are seen Kole Lopez MD (Electronically Signed) Final Date: 15 May 2023 11:06 S
== END 2023-05-14 15:41 | disposition home or self-care (01) ==
LOC: RAD 15:42
PROVIDERS: PCP Family Medicine; Visit Provider Internal Medicine
DX: Q25.1 Coarctation of aorta (principal)
CPT/HCPCS: 93306

== ENCOUNTER → 2023-06-25 10:12 | Outpatient (BNVA) | payer BC, MEDICAID, SELFPAY | PROVIDERS: PCP Family Medicine; Visit Provider Nurse Practitioner | DX: J02.9 Acute pharyngitis, unspecified (principal) | CPT/HCPCS: 87070; 87880 ==

== ENCOUNTER 2023-07-04 11:30 | Emergency (ER) | payer BC, MEDICAID, SELFPAY ==
[2023-07-04 11:38] VITALS: BP 120/86; PULSE 67; RESP 17; O2SAT 98
[2023-07-04 13:01] VITALS: BP 110/76; PULSE 69; O2SAT 100
--- NOTE | 2023-07-04 13:13 | W.ED.BACK ---
HPI - Back Pain/Injury General: Chief Complaint: Back Pain/Injury Stated Complaint: back, hip, right leg pain Time Seen by Provider: 07/04/23 13:11 History of Present Illness: 27-year-old female comes in today with complaints of low back pain radiating down the right leg. Patient appears nontoxic. Patient appears in mild pain at rest. Patient reports history of prior similar pain and discomfort. Patient states that she has had CT scans and x-rays that showed no abnormality. Associated symptoms: Reports fever(s); Deny nausea or vomiting Review of Systems General: Reports: 10 or more systems reviewed and unremarkable except in HPI and below Const: Reports: fever(s) Card: Denies: chest pain Resp: Denies: dyspnea GI: Denies: nausea or vomiting : Denies: difficulty voiding Musc: Reports: back pain; Denies: neck pain PFSH ED PFSH: Medical History Non-suicidal self-harm Last self harm cutting November 2021 Psychiatric care Coarctation of aorta Hutch diverticulum of urinary bladder Recurrent UTI Major depressive disorder, recurrent severe without psychotic features Surgical History (Updated 03/16/23 @ 10:12 by Sergio Carrizales MD) S/P aortic aneurysm repair Family History Grandfather Hypertension Family/Other CAD (coronary artery disease) Other Cancer Diabetes Denies family history of Stroke Social History Smoking and tobacco/nicotine status: never used tobacco/nicotine Alcohol intake: former Substance/Drug Use: never Marital status: Single Current occupational status: unemployed Current gender identity: Female Physical Exam Const: COMMON NORMALS: alert HENMT: COMMON NORMALS: normocephalic HEAD & SCALP: normocephalic Neck/C-Spine: COMMON NORMALS: full ROM Resp: COMMON NORMALS: normal respiratory effort and clear to auscultation bilaterally AUSCULTATION: clear to auscultation bilaterally Cardio: COMMON NORMALS: regular rate and regular rhythm RATE: regular rate RHYTHM: regular rhythm GI: COMMON NORMALS: Soft to palpation PALPATION: Yes Soft to palpation Back/Pelvis: COMMON NORMALS: thoracic and lumbar spine normal to inspection Extremity: COMMON NORMALS: full ROM Neuro: SENSORIUM/ORIENTATION: Yes alert Skin: COMMON NORMALS: turgor normal GENERAL SKIN EXAM: turgor normal Course Vital Signs: Vital signs: Vital Signs Pulse Rate 69 07/04/23 13:01 Respiratory Rate 17 07/04/23 11:38 Blood Pressure 110/76 07/04/23 13:01 Pulse Oximetry 100 07/04/23 13:01 Oxygen Delivery Me thod Room Air 07/04/23 11:38 MDM - Back Pain/Injury Medical Decision Making 27-year-old female comes in today with low back pain radiating down the right leg. Patient has had prior episodes of similar pain and discomfort. On exam abdomen soft. Patient has muscle tenderness in the right lower lumbar back. No midline tenderness is noted to the spine. Differential diagnosis includes intervertebral disc disease, facet arthritis, sciatica, lumbar strain. No signs of severe illness or injury is noted. Patient was given a ketorolac 30 mg injection and 10 mg of dexamethasone for pain and inflammation. Patient be continued on naproxen and methocarbamol for further treatment. Recommend follow-up with primary care for further instructions. Recommend return to ED for new concerns. No radiology studies performed this visit Discharge Plan Discharge Patient Disposition: Home Clinical Impression: Sciatica Qualifiers: Laterality: right Qualified Code(s): M54.31 - Sciatica, right side Condition: Stable Prescriptions: New naproxen 500 mg tablet 500 mg PO BID Qty: 20 0RF methocarbamol 750 mg tablet 750 mg PO TID Qty: 20 0RF No Action fluticasone propionate [Flonase Allergy Relief] 50 mcg/actuation spray,suspension 1 spray intranasal DAILY PRN (Reason: nasal congestion) Qty: 16 0RF Rx Instructions: administer into each nostril azithromycin 500 mg tablet 500 mg PO DAILY 5 Days Qty: 5 0RF duloxetine [Cymbalta] 60 mg capsule,delayed release(DR/EC) 60 mg PO .morning Qty: 30 6RF Rx Instructions: Take one capsule every morning Multiple Vitamins Tablet 2 tab PO DAILY Prilosec OTC 20 mg Tablet,Delayed Release (Dr/Ec) 20 mg PO DAILY PRN (Reason: UNKNOWN) ibuprofen 600 mg tablet 600 mg PO Q6H PRN (Reason: pain) Qty: 20 0RF Discharge Orders: Discharge ED (Routine); Ordered 07/04/23 Ordered By: Homer Pena Referrals: Jemma Malone MD [Primary Care Provider] - Discharge Diet: Usual diet Discharge Activity: Increase activity as tolerated Patient Instructions: Sciatica (ED) Activity Restrictions/Additional Instructions: Try to stay as active as you can. Gentle stretching and range of motion exercises. Use acetaminophen to help with pain. Use naproxen 500 mg 1 tablet twice a day for pain and inflammation. Drink plenty of water and fluids. Use methocarbamol for further back pain and muscle spasms. Do not use methocarbamol while operating equipment, or driving as this may put yourself or others at risk. Return to ER for new concerns. Follow-up with primary care for further evaluation. Coding Level of Care Code ED Executive Receptionist for [facility]
[2023-07-04] MEDS: dexamethasone 10 mg/mL INJ IM (13:30)
[2023-07-04] MEDS: ketorolac 30 mg/mL INJ IM (13:33)
[2023-07-04 13:43] VITALS: BP 112/79; PULSE 73; O2SAT 100
== END 2023-07-04 13:46 | disposition home or self-care (01) ==
PROVIDERS: Emergency Provider Nurse Practitioner Family; PCP Family Medicine
DX: M54.31 Sciatica, right side (principal)
CPT/HCPCS: 96372; 99284; J1100; J1885

== ENCOUNTER 2023-09-26 15:27 | Emergency (ER) | payer BC, MEDICAID, SELFPAY ==
[2023-09-26 15:39] VITALS: BP 112/70; PULSE 76; RESP 16; TEMP 36.6; O2SAT 100; BMI 22.6
--- NOTE | 2023-09-26 15:53 | ED_ITS ---
HPI - Abdominal Pain 2 General: Chief Complaint: Abdominal Pain Stated Complaint: cramping, n/v Time Seen by Provider: 09/26/23 15:44 Source: patient Mode of arrival: ambulatory Limitations: no limitations History of Present Illness: 28-year-old female believes she is 5 to 6 weeks states over the last 5 days she has been having nausea vomiting along with lower abdominal cramping. States that cramping is a 2 out of 10 she states she is vomited roughly 5-6 times over the last 5 days. She denies any dysuria denies any vaginal bleeding. Denies any worse improved factors. Associated Symptoms: Reports nausea and vomiting; Denies chills, diarrhea and fever(s) Related Data: Date of Last Menstrual Period: 08/15/23 Review of Systems 2 Const: Denies: fever(s), chills, body aches or change in appetite Eyes: Denies: blurry vision or eye discomfort ENMT: Denies: throat pain or dental pain Card: Denies: chest pain Resp: Denies: dyspnea GI: Reports: abdominal pain, nausea and vomiting; Denies: diarrhea Musc: Denies: neck pain or back pain Skin/Breast: Denies: rash Neuro: Denies: headache(s) PFSH ED 2 PFSH: Medical History Non-suicidal self-harm Last self harm cutting November 2021 Psychiatric care Coarctation of aorta Hutch diverticulum of urinary bladder Recurrent UTI Major depressive disorder, recurrent severe without psychotic features Surgical History S/P aortic aneurysm repair Family History Grandfather Hypertension Family/Other CAD (coronary artery disease) Other Cancer Diabetes Denies family history of Stroke Social History Smoking and tobacco/nicotine status: never used tobacco/nicotine Alcohol intake: former Substance/Drug Use: never Marital status: Single Current occupational status: unemployed Current gender identity: Female Female Reproductive History: Date of last menstrual period: 08/15/23 Physical Exam 2 Const: COMMON NORMALS: no acute distress, patient oriented x3 and healthy appearing HENMT: COMMON NORMALS: normocephalic and atraumatic HEAD & SCALP: n ormocephalic and atraumatic Neck/C-Spine: COMMON NORMALS: full ROM and supple Chest: COMMONS NORMALS: normal inspection of the chest Resp: COMMON NORMALS: normal respiratory effort GI: COMMON NORMALS: Normal to inspection, nondistended, normoactive bowel sounds present, Soft to palpation, non-tender and no masses PALPATION: Yes Soft to palpation Extremity: COMMON NORMALS: normal to inspection and full ROM Neuro: COMMON NORMALS: patient oriented x3, moves all extremities and no focal motor deficits Psych: COMMON NORMALS: mental status grossly normal, Normal thought process present and cooperative THOUGHT PROCESS: Normal thought process present Skin: COMMON NORMALS: no rashes or lesions noted and no wounds GENERAL SKIN EXAM: no rashes or lesions noted Course 2 Vital Signs: Vital signs: Vital Signs Temperature 97.9 F 09/26/23 15:39 Pulse Rate 76 09/26/23 15:39 Respiratory Rate 16 09/26/23 15:39 Blood Pressure 112/70 09/26/23 15:39 Pulse Oximetry 100 09/26/23 15:39 Oxygen Delivery Me thod Room Air 09/26/23 15:39 MDM - Abdominal Pain Medical Decision Making Patient presents with lower abdominal cramping early in along with vomiting she does have a UTI symptoms improved here with Reglan ultrasound showed an IUP she has no signs of ectopic we will treat her UTI will prescribe her Reglan she has follow-up with her OB next week follow-up as scheduled return if worsening she understands agrees to plan Medical Records I reviewed the patient's medical records. Lab Data I reviewed the patient's lab results. 09/26/23 15:55 09/26/23 15:55 Labs/Radiology: Radiology Impressions Obstetrics Ultrasound 09/26/23 15:53 IMPRESSION: 1. Viable IUP at 6 weeks 3 days 2. There is some suggestion of a bicornuate uterus Laboratory Results WBC 8.35 10^3/uL (3.29-11.43) 09/26/23 15:55 RBC 4.01 10^6/uL (3.85-5.65) 09/26/23 15:55 Hgb 12.40 g/dL (11.27-16.99) 09/26/23 15:55 Hct 36.0 % (36-47) 09/26/23 15:55 MCV 89.8 fl (85-98) 09/26/23 15:55 MCH 30.9 pg (27-33) 09/26/23 15:55 MCHC 34.4 g/dL (30-55) 09/26/23 15:55 RDW 12.1 % (12.1-15.1) 09/26/23 15:55 Plt Count 195 10^3/cmm (157-399) 09/26/23 15:55 MPV 10.2 fL (7.4-10.4) 09/26/23 15:55 Neut % (Auto) 63.0 % 09/26/23 15:55 Lymph % (Auto) 26.6 % 09/26/23 15:55 [place] % (Auto) 7.5 % 09/26/23 15:55 Eos % (Auto) 1.7 % 09/26/23 15:55 Baso % (Auto) 0.8 % 09/26/23 15:55 Neut # (Auto) 5.26 10^3/uL (1.8-7.7) 09/26/23 15:55 Lymph # (Auto) 2.2 10^3/uL (0.8-4.8) 09/26/23 15:55 [place] # (Auto) 0.6 10^3/uL (0.2-0.9) 09/26/23 15:55 Eos # (Auto) 0.1 10^3/uL (0.0-0.8) 09/26/23 15:55 Baso # (Auto) 0.1 10^3/uL (0.0-0.1) 09/26/23 15:55 Nucleated RBC % (auto) 0 % 09/26/23 15:55 Nucleated RBCs # 0.0 /100WBC 09/26/23 15:55 Sodium 134 mmol/L (136-145) L 09/26/23 15:55 Potassium 3.5 mmol/L (3.5-5.1) 09/26/23 15:55 Chloride 99 mmol/L (98-107) 09/26/23 15:55 Carbon Dioxide 22 mmol/L (22-29) 09/26/23 15:55 Anion Gap 16.5 (5-19) 09/26/23 15:55 BUN 9 mg/dL (6-20) 09/26/23 15:55 Creatinine 0.6 mg/dL (0.5-0.9) 09/26/23 15:55 GFR Calculation 120.8 mL/min (90-130) 09/26/23 15:55 Glucose 70 mg/dL (65-115) 09/26/23 15:55 Calculated Osmolality 275 mOsm/kg (285-295) L 09/26/23 15:55 Calcium 9.5 mg/dL (8.5-10.5) 09/26/23 15:55 Total Bilirubin 0.2 mg/dL (0.15-1.2) 09/26/23 15:55 AST 10 U/L (0-32) 09/26/23 15:55 ALT 8 U/L (0-33) 09/26/23 15:55 Alkaline Phosphatase 53 U/L (35-105) 09/26/23 15:55 Total Protein 6.7 g/dL (6.6-8.7) 09/26/23 15:55 Albumin 4.3 g/dL (3.5-5.2) 09/26/23 15:55 Globulin 2.4 g/dL (1.3-4.6) 09/26/23 15:55 Lipase 34 U/L (13-60) 09/26/23 15:55 Ser , Semi-Qnt 96145.00 mIU/mL 09/26/23 15:55 Urine Color Yellow (Yellow) 09/26/23 15:53 Urine Appearance Hazy (CLEAR) A 09/26/23 15:53 Urine pH 5 (5-7) 09/26/23 15:53 Ur Specific [place] 1.020 (1.005-1.030) 09/26/23 15:53 Urine Protein Neg (Negative) 09/26/23 15:53 Urine Glucose (UA) Norm (Normal) 09/26/23 15:53 Urine Ketones Negative (Negative) 09/26/23 15:53 Urine Blood 2+ (Negative) H 09/26/23 15:53 Urine Nitrate Negative (Negative) 09/26/23 15:53 Urine Bilirubin Neg (Negative) 09/26/23 15:53 Urine Urobilinogen Norm mg/dL (Negative) 09/26/23 15:53 Ur Leukocyte Esterase 2+ (Negative) H 09/26/23 15:53 Urine RBC 5-10 /hpf (0-2) H 09/26/23 15:53 Urine WBC 25-40 /hpf (0-5) H 09/26/23 15:53 Ur Squamous Epith Cells 10-15 /hpf (0-5) H 09/26/23 15:53 Amorphous Sediment Not Reportable 09/26/23 15:53 Urine Bacteria 2+ /hpf (NONE) H 09/26/23 15:53 All radiology interpretation(s) finalized by discharge Discharge Plan Discharge Patient Disposition: Home Clinical Impression: UTI in Condition: Stable Prescriptions: New cephalexin 500 mg capsule 500 mg PO TID 7 Days Qty: 21 0RF Reglan 10 mg tablet 10 mg PO Q6H PRN (Reason: nausea and vomiting) Qty: 20 0RF No Action fluticasone propionate [Flonase Allergy Relief] 50 mcg/actuation spray,suspension 1 spray intranasal DAILY PRN (Reason: nasal congestion) Qty: 16 0RF Rx Instructions: administer into each nostril azithromycin 500 mg tablet 500 mg PO DAILY 5 Days Qty: 5 0RF duloxetine [Cymbalta] 60 mg capsule,delayed release(DR/EC) 60 mg PO .morning Qty: 30 6RF Rx Instructions: Take one capsule every morning Multiple Vitamins Tablet 2 tab PO DAILY Prilosec OTC 20 mg Tablet,Delayed Release (Dr/Ec) 20 mg PO DAILY PRN (Reason: UNKNOWN) methocarbamol 750 mg tablet 750 mg PO TID Qty: 20 0RF ibuprofen 600 mg tablet 600 mg PO Q6H PRN (Reason: pain) Qty: 40 0RF hydrocodone-acetaminophen 5-325 mg tablet 1 tab PO Q8H PRN (Reason: pain (scale score 7-10)) Qty: 7 0RF Discharge Orders: Discharge ED (Routine); Ordered 09/26/23 Ordered By: Cliff Gates Referrals: Jemma Malone MD [Primary Care Provider] - Discharge Diet: Advance as tolerated Discharge Activity: Resume usual activity Patient Instructions: Urinary Tract Infection in (ED) Coding Level of Care Code ED Waste Transportation Technician for [facility]
--- NOTE | 2023-09-26 15:53 | USR_ITS ---
PROCEDURE INFORMATION: Exam: US First Trimester, Transabdominal and US , Transvaginal Exam date and time: 09/26/2023 4:45 PM Age: 28 years old Clinical indication: complicated by abdominal or pelvic pain; Lower; First trimester (<14 weeks 0 days); Gestational age or lmp: 6w; ; Additional info: Abd pain LABS AND CLINICAL REPORTS: Last menstrual period start date: 08/15/2023 Gestational age (Established): 6 w 0 d Estimated due date (Established): 05/21/2024 TECHNIQUE: Imaging protocol: Real-time transabdominal obstetrical ultrasound of the maternal pelvis and a first trimester , less than 14 weeks 0 days, with image documentation. Transvaginal imaging was used for better evaluation of the fetus, adnexa, and/or cervix. COMPARISON: US pelvic complete* [id number] 05/20/2022 7:32 PM FINDINGS: Gestation: Intrauterine gestation. Yolk sac is unremarkable. Embryonic/ heart rate: 240 bpm. There is an intrauterine gestational sac that contains a tiny pole that demonstrates a heart rate of 240 bpm. There is no evidence of subchorionic hemorrhage. There is suggestion of a bicornuate uterus in the gestational sac appears to lie in the right horn. Extra-embryonic membranes/Placenta: See Embryonic/ heart rate finding. Amniotic fluid: Amniotic fluid and extra-amniotic fluid is normal for gestational age. BIOMETRY: Gestational age (AUA): 6 weeks 3 days Mean sac diameter: 1.55 cm. EGA (MSD) is 6 w 3 d MATERNAL: Uterus: Unremarkable. Cervix: Cervical length measures 3.1 cm. Right ovary/adnexa: Unremarkable ovary. Left ovary/adnexa: Unremarkable ovary. Intraperitoneal space: No intraperitoneal free fluid. US/US OB <=14 wk fetus w transvag IMPRESSION: 1. Viable IUP at 6 weeks 3 days 2. There is some suggestion of a bicornuate uterus
[2023-09-26 16:03] LABS: Basophils # 0.1 10^3/uL (0.0-0.1); Basophils % 0.8 %; Eosinophils # 0.1 10^3/uL (0.0-0.8); Eosinophils % 1.7 %; Lymphocytes # 2.2 10^3/uL (0.8-4.8); Lymphocytes % 26.6 %; Mean Corpuscular HGB Conc 34.4 g/dL (30-55); Mean Corpuscular Hemoglobin 30.9 pg (27-33); Mean Corpuscular Volume 89.8 fl (85-98); Mean Platelet Volume 10.2 fL (7.4-10.4); Monocytes # 0.6 10^3/uL (0.2-0.9); Monocytes % 7.5 %; Neutrophils # 5.26 10^3/uL (1.8-7.7); Nucleated Red Blood Cells % 0 %; Platelet Count 195 10^3/cmm (157-399); Red Blood Count 4.01 10^6/uL (3.85-5.65); Red Cell Distribution Width 12.1 % (12.1-15.1); White Blood Count 8.35 10^3/uL (3.29-11.43)
[2023-09-26 16:20] LABS: Add Urine Microscopic? YES; Bilirubin Urine Neg (Negative); Blood Urine 2+ (Negative); Glucose Urine UA Norm (Normal); Ketones Urine Negative (Negative); Leukocyte Esterase Urine 2+ (Negative); Nitrate Urine Negative (Negative); Protein Urine Neg (Negative); Urine Appearance Hazy (CLEAR); Urine Color Yellow (Yellow); Urobilinogen Urine Norm (Negative); pH Urine 5 (5-7)
[2023-09-26 16:21] LABS: Add Urine Culture? No; Bacteria Urine 2+ /hpf; WBC Urine 25-40 /hpf (0-5)
[2023-09-26] MEDS: diphenhydrAMINE 50 mg/mL SDV 1mL IVP (16:21)
[2023-09-26] MEDS: sodium chloride 0.9% 1,000 ML 999 ML IV (16:22)
[2023-09-26] MEDS: metoclopramide 5 mg/mL SDV 2 mL 10 MG IVP (16:22)
[2023-09-26 16:40] LABS: Alanine Aminotransferase 8 U/L (0-33); Albumin Level 4.3 g/dL (3.5-5.2); Alkaline Phosphatase 53 U/L (35-105); Anion Gap 16.5 (5-19); Aspartate Amino Transferase 10 U/L (0-32); Blood Urea Nitrogen 9 mg/dL (6-20); Calcium 9.5 mg/dL (8.5-10.5); Carbon Dioxide 22 mmol/L (22-29); Chloride 99 mmol/L (98-107); Creatinine Clr Calc Pharmacy 113.1675; Globulin 2.4 g/dL (1.3-4.6); Glomerular Filtration Rate 120.8 mL/min (90-130); Glucose 70 mg/dL (65-115); Lipase 34 U/L (13-60); Osmolality Calculated 275 mOsm/kg (285-295); Potassium 3.5 mmol/L (3.5-5.1); Sodium 134 mmol/L (136-145); Total Bilirubin 0.2 mg/dL (0.15-1.2); Total Protein 6.7 g/dL (6.6-8.7)
[2023-09-26] MEDS: cefTRIAXone 1,000 MG in sodium chloride 0.9% (plus) 50 ML 100 MG IV (16:53)
[2023-09-26 17:51] VITALS: BP 112/70; PULSE 76; RESP 16; TEMP 36.6; O2SAT 100
== END 2023-09-26 17:52 | disposition home or self-care (01) ==
PROVIDERS: Emergency Provider Emergency Medicine; PCP Family Medicine
DX: O23.41 Unspecified infection of urinary tract in pregnancy, first trimester (principal); N39.0 Urinary tract infection, site not specified; Z3A.01 Less than 8 weeks gestation of pregnancy
CPT/HCPCS: 36415; 76801; 76817; 80053; 81001; 83690; 84702; 85025; 96374; 96375; 99284; J0696; J1200; J2765; J7030

== ENCOUNTER → 2023-10-12 09:54 | Outpatient (BNVA) | payer BC, SELFPAY | PROVIDERS: PCP Family Medicine; Visit Provider Nurse Practitioner Women's Health | DX: O26.891 Other specified pregnancy related conditions, first trimester (principal); R10.2 Pelvic and perineal pain; Z3A.08 8 weeks gestation of pregnancy | CPT/HCPCS: 76817; 81025 ==

== ENCOUNTER → 2023-10-13 16:04 | Outpatient (BNVA) | payer BC, SELFPAY | PROVIDERS: PCP Family Medicine; Visit Provider Nurse Practitioner Women's Health | DX: O03.4 Incomplete spontaneous abortion without complication (principal) | CPT/HCPCS: 84702 ==

== ENCOUNTER 2023-10-14 21:20 | Emergency (ER) | payer BC, MEDICAID, SELFPAY ==
[2023-10-14 21:21] VITALS: BP 108/75; PULSE 81; RESP 16; TEMP 36.8; O2SAT 99
[2023-10-14 22:03] LABS: Basophils # 0.1 10^3/uL (0.0-0.1); Basophils % 0.7 %; Eosinophils # 0.2 10^3/uL (0.0-0.8); Hematocrit 36.5 % (36-47); Lymphocytes # 2.4 10^3/uL (0.8-4.8); Lymphocytes % 24.5 %; Mean Corpuscular HGB Conc 35.1 g/dL (30-55); Mean Corpuscular Hemoglobin 30.8 pg (27-33); Mean Platelet Volume 9.9 fL (7.4-10.4); Monocytes # 0.7 10^3/uL (0.2-0.9); Monocytes % 7.5 %; Neutrophils # 6.31 10^3/uL (1.8-7.7); Neutrophils % 64.8 %; Nucleated Red Blood Cells % 0 %; Platelet Count 219 10^3/cmm (157-399); Red Blood Count 4.15 10^6/uL (3.85-5.65); Red Cell Distribution Width 12.3 % (12.1-15.1); White Blood Count 9.74 10^3/uL (3.29-11.43)
--- NOTE | 2023-10-14 22:13 | W.ED.ABDPA2 ---
HPI - Abdominal Pain General: Chief Complaint: Abdominal Pain Stated Complaint: 8 Weeks\Preg Trying to Miscarry Time Seen by Provider: 10/14/23 21:34 History of Present Illness: Patient presents to the ER after taking Cytotec to induce miscarriage for intrauterine demise. Patient was about 8 weeks . Patient had ultrasound performed yesterday. Patient has not had any bleeding or byproducts from her vagina. Patient is having lower abdominal pelvic pain. Review of Systems General: Reports: 10 or more systems reviewed and unremarkable except in HPI and below PFSH ED PFSH: Medical History Non-suicidal self-harm Last self harm cutting June 2023 Psychiatric care Coarctation of aorta Hutch diverticulum of urinary bladder Recurrent UTI Major depressive disorder, recurrent severe without psychotic features Surgical History S/P aortic aneurysm repair Family History Grandfather Hypertension Family/Other CAD (coronary artery disease) Other Cancer Diabetes Denies family history of Stroke Social History Smoking and tobacco/nicotine status: never used tobacco/nicotine Alcohol intake: former Substance/Drug Use: never Marital status: Single Current occupational status: unemployed Current gender identity: Female Physical Exam Const: COMMON NORMALS: no acute distress, average body habitus, patient oriented x3, no limitations, healthy appearing, alert and well nourished HENMT: COMMON NORMALS: normocephalic, atraumatic, hearing grossly normal bilaterally, external ears normal, Normal external nose present, moist oral mucous membranes and oropharynx normal HEAD & SCALP: normocephalic and atraumatic NOSE: Normal external nose present EXTERNAL EAR: Yes external ears normal Neck/C-Spine: COMMON NORMALS: no JVD Chest: COMMONS NORMALS: normal inspection of the chest and normal palpation of entire chest wall Resp: COMMON NORMALS: normal respiratory effort, No retractions, No use of accessory muscles and clear to auscultation bilaterally AUSCULTATION: clear to auscultation bilaterally Cardio: COMMON NORMALS: no JVD, regular rate, regular rhythm, S1 normal heart sound present, S2 normal heart sound present, No gallops present (Cardio), No clicks present (Cardio), No murmurs present (Cardio) and No rub (Cardio) RATE: regular rate RHYTHM: regular rhythm HEART SOUNDS: S1 normal heart sound present and S2 normal heart sound present GI: COMMON NORMALS: Normal to inspection, nondistended, normoactive bowel sounds present, Soft to palpation, non-tender, No hepatosplenomegaly present and no masses PALPATION: Yes Soft to palpation and Yes No hepatosplenomegaly present Neuro: COMMON NORMALS: patient oriented x3 SENSORIUM/ORIENTATION: Yes alert Course Vital Signs: Vital signs: Vital Signs Temperature 98.2 F 10/14/23 21:21 Pulse Rate 81 10/14/23 21:21 Respiratory Rate 16 10/14/23 21:21 Blood Pressure 108/75 10/14/23 21:21 Pulse Oximetry 99 10/14/23 21:21 Oxygen Delivery Me thod Room Air 10/14/23 21:21 MDM - Abdominal Pain Medical Decision Making I discussed this case with Dr. Traore he says this is normal and he usually send people home with Percocet. He does not advise any additional testing. He did offer his phone number to give to the patient. Will give the patient pain medicine and discharged her after we discussed the expectations of taking the Cytotec and Dr. Traore. Differential Diagnosis Unlikely abdominal pain, acute appendicitis, calculus of kidney, constipation, diverticulitis, endometriosis, gastroenteritis, pancreatitis or small bowel obstruction Medical Records I reviewed the patient's medical records. Lab Data I reviewed the patient's lab results. 10/14/23 21:49 Labs/Radiology: Laboratory Results WBC 9.74 10^3/uL (3.29-11.43) 10/14/23 21:49 RBC 4.15 10^6/uL (3.85-5.65) 10/14/23 21:49 Hgb 12.80 g/dL (11.27-16.99) 10/14/23 21:49 Hct 36.5 % (36-47) 10/14/23 21:49 MCV 88.0 fl (85-98) 10/14/23 21:49 MCH 30.8 pg (27-33) 10/14/23 21:49 MCHC 35.1 g/dL (30-55) 10/14/23 21:49 RDW 12.3 % (12.1-15.1) 10/14/23 21:49 Plt Count 219 10^3/cmm (157-399) 10/14/23 21:49 MPV 9.9 fL (7.4-10.4) 10/14/23 21:49 Neut % (Auto) 64.8 % 10/14/23 21:49 Lymph % (Auto) 24.5 % 10/14/23 21:49 [place] % (Auto) 7.5 % 10/14/23 21:49 Eos % (Auto) 2.0 % 10/14/23 21:49 Baso % (Auto) 0.7 % 10/14/23 21:49 Neut # (Auto) 6.31 10^3/uL (1.8-7.7) 10/14/23 21:49 Lymph # (Auto) 2.4 10^3/uL (0.8-4.8) 10/14/23 21:49 [place] # (Auto) 0.7 10^3/uL (0.2-0.9) 10/14/23 21:49 Eos # (Auto) 0.2 10^3/uL (0.0-0.8) 10/14/23 21:49 Baso # (Auto) 0.1 10^3/uL (0.0-0.1) 10/14/23 21:49 Nucleated RBC % (auto) 0 % 10/14/23 21:49 Nucleated RBCs # 0.0 /100WBC 10/14/23 21:49 No radiology studies performed this visit Discharge Plan Discharge Patient Disposition: Home Clinical Impression: demise, Miscarriage Condition: Stable Prescriptions: New Percocet 5-325 mg tablet 1 tab PO Q8H PRN (Reason: pain) Qty: 14 0RF No Action Classic 28 mg iron- 800 mcg tablet PO misoprostol 200 mcg tablet 800 mcg PO Q12H Qty: 8 0RF Rx Instructions: take 800 mcg one time and if bleeding does not start within 12 hours repeat dose Discharge Orders: Discharge ED (Routine); Ordered 10/14/23 Ordered By: Dax Whipple Referrals: Jemma Malone MD [Primary Care Provider] - 1 week Patient Instructions: Opioid Safety, Pain Management Activity Restrictions/Additional Instructions: Dr. Traore, CHILD CARE CENTRE MANAGER, said you can call him anytime with any questions his cell phone number is [phone]. He said let the medicine take its course and use your pain medicine that we will prescribe you as needed as directed. If you have any other questions please feel free to call Dr. Traore or return to the ER. Stand Alone Forms: Work/School Release Coding Level of Care Code ED Cardiovascular Technician for [facility]
[2023-10-14] MEDS: ondansetron 2 mg/ML SDV 2 mL 4 MG IVP (22:14)
[2023-10-14] MEDS: sodium chloride 0.9% 1,000 ML 999 ML IV (22:15)
[2023-10-14] MEDS: morphine 4 mg/mL SDV 1 mL IVP (22:15)
== END 2023-10-15 00:16 | disposition home or self-care (01) ==
PROVIDERS: Emergency Medicine; Emergency Provider Emergency Medicine; PCP Family Medicine
DX: O03.9 Complete or unspecified spontaneous abortion without complication (principal); O02.1 Missed abortion
CPT/HCPCS: 36415; 85025; 96374; 96375; 99284; J2270; J2405; J7030

== ENCOUNTER 2023-10-18 10:11 | Day surgery (SDC) | payer BC, MEDICAID, SELFPAY ==
[2023-10-18] VITALS (10 sets, daily range): BP systolic 96–119; BP diastolic 67–89; PULSE 62–82; RESP 13–27; TEMP 36.1–37.1; O2SAT 98–100; BMI 22.6
--- NOTE | 2023-10-18 10:37 | P.ANESASSM_ITS ---
Pre-Anesthetic Assessment Height/Weight: Height 1.55 m Weight 54.431 kg Temp Pulse Resp BP Pulse Ox O2 Del Method 98.6 F 75 17 96/67 100 Room Air 10/18/23 10:27 10/18/23 10:27 10/18/23 10:27 10/18/23 10:27 10/18/23 10:27 10/18/23 10:27 Preop Diagnosis: missed Operation Date: 10/18/23 11:10 Proposed Procedures p Dilation And Curettage w/ Suction(Not Applicable) - Rambo Traore MD Familial anesthetic complications: None Was Beta Ubaldo taken within 24 hours: N/A Was Clonidine taken within 24 hours: N/A Last intake: Intake Last Liquid Date 10/17/23 Last Liquid Time 17:30 Last Solid Date 10/17/23 Last Solid Time 17:30 Social No alcohol and No tobacco Exam alert, oriented x 3, clear to auscultation bilaterally and regular rate & rhythm Airway Mallampati: Class I Dentition: chipped CV/HEM aotic coarctation s/p repair - no limitations in functional status; able to achieve > 4 meTS Anesthetic Plan ASA status: 2 Anesthesia: General Risk of > 500 ml blood loss (7ml/kg in children): No Medications/Allergies Home Medications Medication Instructions Recorded Confirmed Last Taken Type No Known Home Medications 10/18/23 10/18/23 Unknown History Allergies Allergy/AdvReac Type Severity Reaction Status Date / Time amoxicillin Allergy Unknown rash Verified 10/14/23 21:25 [email or web address] [From Omnicef] Allergy Unknown rash Verified 10/14/23 21:25 [facility] Anesthesia Medical History Non-suicidal self-harm Last self harm cutting June 2023 Psychiatric care 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
[2023-10-18] MEDS: sodium chloride 0.9% 1,000 ML 30 ML IV (10:40)
[2023-10-18] MEDS: scopolamine 1.5 Patch 1 PATCH TRANSDERMA (10:45)
--- NOTE | 2023-10-18 10:51 | W.PM.OPSUD ---
Surgery/Procedure H&P Update DATE OF PROCEDURE: October 18, 2023 DATE H&P PERFORMED: 10/15/23 H&P UPDATE INFORMATION: I have reviewed H&P completed within last 30 days, I have examined patient prior to procedure and No changes to prior documentation PREOP DIAGNOSIS: missed PLANNED PROCEDURE: Operation Date: 10/18/23 11:10 Proposed Procedures p Dilation And Curettage w/ Suction(Not Applicable) - Rambo Traore MD
--- NOTE | 2023-10-18 12:05 | PM.OP ---
Operative Report Date of procedure: October 18, 2023 Pre-op diagnosis: missed failed cytotec induction Post-op diagnosis: same Post-op findings: uterus sounded to 9 cm Products of conception Procedure done: suction dilatation and curettage of uterus Implants: none Specimens removed/disposition: products of conception Surgeon: Rambo Traore MD Anesthesia: General Estimated blood loss (mL): 100 Complications: none Condition: stable Disposition: PACU Brief History: 28 y.o. with missed at approx 8 weeks gestation failed four doses of cytotec induction Procedure: Informed consent signed The patient was taken to the operating room. General anesthesia was induced. The patient was placed in dorsolithotomy position. The perineum was prepped and draped in the usual fashion. A bivalve speculum was placed in the vagina. The anterior lip of the cervix was grasped with a sharp-toothed tenaculum. The uterus was sounded to 9 cm. The cervix was serially dilated with Hegar dilators. A #8 curved suction curette was used to empty the contents of the uterus. Products of conception were obtained and sent to pathology. A sharp curette, followed again by the suction curette, were used to evacuate the uterus. No further bleeding was seen. All instruments were then removed from the uterus, cervix and vagina. No bleeding was seen from the cervix. The patient was then placed supine, awakened, and taken to the recovery room. Postop condition: stable EBL: 100 cc Complications: none Sponge/instruments counts correct x two
[2023-10-18] MEDS: ibuprofen 800 mg tablet PO (12:52)
--- NOTE | 2023-10-18 13:15 | ANE.PACU2 ---
Inpatient post-anesthesia follow up: Airway intact: Yes Vital signs: Temperature 98.8 F Pulse Rate 62 Respiratory Rate 17 Blood Pressure 97/74 Pulse Oximetry 100 Oxygen Delivery Me thod Room Air Oxygen Flow Rate Fraction of Inspir ed Oxygen Hydration adequate: Yes Nausea and vomiting: No Pain level: 1 Mental status: Baseline
== END 2023-10-18 13:19 | disposition home or self-care (01) ==
PROVIDERS: PCP Family Medicine; Visit Provider Obstetrics & Gynecology
PROC: (CPT 59820; principal; 2023-10-18 11:00)
DX: O02.1 Missed abortion (principal)
CPT/HCPCS: 59820; 88305; A4216; J0330; J1100; J2250; J2405; J2704; J3010; J3490; J7030

== ENCOUNTER → 2023-11-10 13:50 | Outpatient (BNVA) | payer BC, SELFPAY | PROVIDERS: PCP Family Medicine; Visit Provider Obstetrics & Gynecology | DX: Z30.09 Encounter for other general counseling and advice on contraception (principal) | CPT/HCPCS: 81025 ==

== ENCOUNTER → 2024-02-04 11:00 | Outpatient (BNVA) | payer BC, SELFPAY | PROVIDERS: PCP Family Medicine; Visit Provider Emergency Medicine | DX: R39.9 Unspecified symptoms and signs involving the genitourinary system (principal); N12 Tubulo-interstitial nephritis, not specified as acute or chronic | CPT/HCPCS: 81000 ==

== ENCOUNTER → 2024-05-05 13:21 | Outpatient (BNVA) | payer SELFPAY | PROVIDERS: PCP Family Medicine | DX: R30.9 Painful micturition, unspecified (principal) | CPT/HCPCS: 81000 ==